=== PATIENT | female | born 1950 | race Caucasian/White ===

== ENCOUNTER 2019-09-06 09:52 | Observation (INO) | payer MEDICARE, SELFPAY ==
[2019-09-06] VITALS (14 sets, daily range): BP systolic 111–168; BP diastolic 45–98; PULSE 82–106; RESP 16–26; TEMP 36.2–37.5; O2SAT 95–100; BMI 27.8
--- NOTE | ~2019-09-06 | CT_ITS ---
EXAMINATION: CTA chest PE protocol DATE: 09/06/2019 13:15 INDICATION: Shortness of breath. Chest pain and midsternal pressure History of COPD and asthma. TECHNIQUE: Computed tomography angiography (CTA) of the chest was performed with 100 mL Omnipaque-350 intravenous contrast timed to evaluate the pulmonary arteries. Coronal maximum intensity projection 3D-reconstructions were created by the technologist. Automated exposure control and iterative reconst ruction technique were employed. Exam dose: 319.33 mGy-cm total exam DLP. COMPARISON: 09/06/2019 PA and lateral chest FINDINGS: There is diagnostic contrast enhancement of the pulmonary arteries and no evidence of pulmo nary embolism. No thoracic aortic aneurysm or dissection. No hilar or mediastinal mass lesion or lymphadenopathy. Normal heart size. No pericardial or pleural effusion. No pulmonary infiltrate or consolidation or suspicious pulmonary mass lesion is detected. Status post cholecystectomy. 1.4 cm left adrenal mass, statistically most likely an adrenal adenoma i f there is no known primary malignancy. No suspicious osteolytic or osteoblastic lesions. Degenerative changes of the thoracic spine. IMPRESSION: No evidence of pulmonary embolism Reviewed, dictated and finalized at [facility]. Reviewed, dictated and finalized at location A. Y REPAIRER
--- NOTE | ~2019-09-06 | XR_ITS ---
XR chest 2V DATE: 09/06/2019 10:14 INDICATION: Shortness of breath. COPD, history of asthma. TECHNIQUE: PA and lateral chest COMPARISON: None FINDINGS: The lungs are hyperinflated but clear of infiltrate or consolidation. No pleural effusion o r pulmonary vascular congestion or pneumothorax. Normal heart size. No hilar or mediastinal enlargement. Aortic arch calcification. Mild degenerative spurring of the thoracic spine. IMPRESSION: No active cardiopulmonary disease Reviewed, dictated and finalized at location A. EDGER
--- NOTE | ~2019-09-06 | NM_ITS ---
EXAMINATION: NM charo stress w perfusion EXAM DATE: 09/08/2019 18:04 INDICATION: Ischemic chest pain. TECHNIQUE: Rest images were obtained following intravenous administration of 9.6 mCi Tc99m tetrofosmi n (Myoview). The patient was infused intravenously with Lexiscan (regadenoson). Then, 25.7 mCi Tc99m tetrofosmin (Myoview) was administered intravenously, and stress images were obtained. Data was recon structed into short axis and horizontal and vertical long axis SPECT images. Gated SPECT images were also obtained. There is no prior study for comparison. FINDINGS: There is no reversible or fixed perfusion abnormality to suggest ischemia or infarction. Th ere is normal left ventricular wall motion. End diastolic volume: 61 mL. End-systolic volume: 7 mL. Left ventricular ejection fraction: 89%. IMPRESSION: 1. Normal myocardial perfusion at rest and during stress. 2. Left ventricular ejection fraction measuring 89%. Reviewed, dictated and finalized at location A. ARCH ASST
--- NOTE | 2019-09-06 10:00 | ECG_ITS ---
Measurements Intervals [place] Rate: 81 P: -73 VA: 187 QRS: 49 QRSD: 77 T: 42 QT: 338 QTc: 394 Interpretive Statements SINUS RHYTHM BORDERLINE ST ABNORMALITY- INFERIOR LEADS BASELINE WANDER- V3 BORDERLINE ECG Electronically Signed On 09-06-2019 11:50:05 REPAIRER SHOE STICKS by Arjun Wagner D.O.
[2019-09-06] MEDS: IPRATROPIUM BR 0.02% INH SOLN 0.5 MG/2.5 ML VIAL INHALATION (10:24)
[2019-09-06] MEDS: ALBUTEROL SULFATE NEB 2.5 MG/0.5 ML INH 5 MG INHALATION (10:24)
[2019-09-06 10:29] LABS: INR 0.9; Prothrombin Time 11.9 Seconds (11.1-14.7)
[2019-09-06 10:30] LABS: Partial Thromboplastin Time 25.8 SECONDS (22.3-36.8)
[2019-09-06 10:37] LABS: Alanine Aminotransferase 16 U/L (4-35); Albumin Level 4.4 g/dL (3.5-5.1); Alkaline Phosphatase 95 U/L (38-126); Aspartate Amino Transferase 18 U/L (14-36); Bilirubin,Total 0.4 mg/dL (0.2-1.3); Blood Urea Nitrogen 16 mg/dL (7-17); Calcium 9.8 mg/dL (8.4-10.2); Carbon Dioxide 22 mmol/L (22-30); Chloride 100 mmol/L (98-107); Estimated Glomerular Filt Rate 55; Glucose 194 mg/dL (65-105); Lipase 94 U/L (23-300); Sodium 137 mmol/L (137-145)
[2019-09-06 10:49] LABS: NT Pro B Type Natriuretic Pept 72 PG/ML (5-100); Troponin I < 0.012 ng/mL (0.000-0.034)
[2019-09-06 10:50] LABS: Troponin I < 0.012 ng/mL (0.000-0.034)
[2019-09-06] MEDS: SODIUM CHLORIDE 0.9% IV 500 ML 999 ML IV CONT (10:58)
[2019-09-06 11:31] LABS: Add Urine Microscopic? NO; Appearance Urine Clear (Clear); Bilirubin Urine Negative (Negative); Blood Urine Negative (Negative); Color Urine Yellow (Yellow); Glucose Urine UA Negative (Negative); Ketones Urine Negative (Negative); Leukocyte Esterase Ur Negative LEU/UL (Negative); Nitrate Urine Negative (Negative); Protein Urine Negative (Negative); Specific Grav Ur 1.011 (1.001-1.035); Urobilinogen Urine Negative mg/dL (<2.0)
[2019-09-06 12:23] LABS: D Dimer 0.61 ug/mL (<0.48)
--- NOTE | 2019-09-06 12:37 | ECG_ITS ---
Measurements Intervals [place] Rate: 87 P: 53 CA: 198 QRS: 20 QRSD: 74 T: 29 QT: 334 QTc: 403 Interpretive Statements SINUS RHYTHM NORMAL ECG Electronically Signed On 09-06-2019 15:51:20 ELECTRIC MOTORMAN by Arjun Wagner D.O.
[2019-09-06 13:23] LABS: Troponin I < 0.012 ng/mL (0.000-0.034)
--- NOTE | 2019-09-06 14:21 | ECG_ITS ---
Measurements Intervals [place] Rate: 84 P: 91 NE: 206 QRS: 23 QRSD: 81 T: 37 QT: 340 QTc: 402 Interpretive Statements SINUS RHYTHM WITH FIRST DEGREE AV BLOCK DELAYED PRECORDIAL R/S TRANSITION ABNORMAL ECG Electronically Signed On 09-06-2019 15:52:48 DIRECTOR OF INTERCOLLEGIATE ATHLETICS by Arjun Wagner D.O.
--- NOTE | 2019-09-06 14:26 | ED.CHESTPAIN ---
HPI - Chest Pain General Chief Complaint: Chest Pain <Bebo Diaz PA-C - Last Filed: 09/06/19 15:19> Stated Complaint: chest pain <GISSELLE Doe Last Filed: 09/06/19 15:19> Source: patient <Bebo GISSELLE Wallis Last Filed: 09/06/19 15:19> Mode of arrival: ambulatory <GISSELLE Doe Last Filed: 09/06/19 15:19> Limitations: no limitations <GISSELLE Doe Last Filed: 09/06/19 15:19> History of Present Illness HPI narrative: Patient is a 68-year-old female who presents to emergency department for evaluation of developing chest heaviness this morning patient notes heaviness that was present upon waking patient notes that she has been ill over the last couple of weeks with bronchitic cough with congestion and rhinorrhea patient has tried [id number] medications as well as her prescribed medications with history of asthma patient on arrival notes that she has some improvement with nitro in route but states that she also feels dizzy patient notes that she had felt better yesterday more so than normal during the course of her upper respiratory symptoms and was more active throughout the day patient on arrival is resting comfortably in the room and denies any dyspnea from her normal shortness of breath but notes that she has had some difficulty with ambulation and activity. Patient is followed by primary care which she is currently between at this time due to insurance issues. 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 Patient denies vomiting diarrhea or abdominal pain. Symptoms are worse with coughing and deep breathing <Bebo Diaz PA-C - Last Filed: 09/06/19 15:19> MD complaint: chest heaviness <GISSELLE Doe Last Filed: 09/06/19 15:19> Pertinent past history: asthma <GISSELLE Doe Last Filed: 09/06/19 15:19> Onset (ago): hour(s) <GISSELLE Doe Last Filed: 09/06/19 15:19> Timing of current episode: constant <GISSELLE Doe Last Filed: 09/06/19 15:19> Prior episodes: No <GISSELLE Doe Last Filed: 09/06/19 15:19> Onset: during rest <Bebo Diaz PA-C - Last Filed: 09/06/19 15:19> Pain location: substernal <GISSELLE Doe Last Filed: 09/06/19 15:19> Severity: moderate <GISSELLE Doe Last Filed: 09/06/19 15:19> Quality: heaviness <GISSELLE Doe Last Filed: 09/06/19 15:19> Relieving factors: nitroglycerin <GISSELLE Doe Last Filed: 09/06/19 15:19> Exacerbating factors: inspiration <GISSELLE Doe Last Filed: 09/06/19 15:19> Context: recent illness <GISSELLE Doe Last Filed: 09/06/19 15:19> Associated symptoms: dyspnea <GISSELLE Doe Last Filed: 09/06/19 15:19> Treatment prior to arrival: aspirin and nitroglycerin <GISSELLE Doe Last Filed: 09/06/19 15:19> Related Data Allergies/Adverse Reactions: Allergies Allergy/AdvReac Type Severity Reaction Status Date / Time No Known Allergies Allergy Verified 09/06/19 10:01 <Bebo Diaz PA-C - Last Filed: 09/06/19 15:19> Review of Systems Review of Systems: Narrative: CONSTITUTIONAL: Denies fever, chills, or sweats. Positive for fatigue EYES: Denies redness, or discharge. ENT: Positive for rhinorrhea, congestion, sore throat, denies otalgia. CARDIOVASCULAR: Denies palpitations, or edema. GASTROINTESTINAL: Denies abdominal pain, nausea, vomiting, or diarrhea. GENITOURINARY: Denies dysuria or hematuria. SKIN: Denies rash or itching. MUSCULOSKELETAL: Denies back pain, joint pain, or myalgia. NEUROLOGIC: Denies headache, numbness, or weakness. PSYCHIATRIC: Positive for anxiety <Bebo Diaz PA-C - Last Filed: 09/06/19 15:19> PMFSH Past Medical History Medical History: Medical History Asthma <Bebo Andrade
--- NOTE | 2019-09-06 14:37 | PC.NURSE ---
PA at bedside; verbal order to not administer Nitro paste at this time.
[2019-09-06] MEDS: methylPREDNISolone SOD SUCC 125 MG VIAL IV PUSH (15:06)
[2019-09-06 17:34] LABS: Glucose Point of Care 184 (65-105)
--- NOTE | 2019-09-06 17:41 | ADMIMU ---
This patient, Tanya Davies, was admitted to IMU status, and placed in IMU Room 207-01. Patient/family oriented to hospital policies and general routines including ID bracelet, bed and alarms, visiting hours, pain management, procedures, bathroom and other care routines, personal items, smoking policy, room service/diet, and visiting hours. Valuables list has been completed. Information on how to activate the Rapid Response Team has been discussed. Patient/Family are encouraged to report perceived risks to care and to ask questions if they do not understand what they are told or what they should do.
[2019-09-06] MEDS: ACETAMINOPHEN 325 MG TABLET 650 MG PO (20:06)
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
[2019-09-06 21:11] LABS: Glucose Point of Care 445 (65-105)
[2019-09-06] MEDS: INSULIN ASPART (*BKC) 100 UNITS/ML 6 UNITS SUB-Q (21:54)
[2019-09-06 22:04] LABS: Troponin I < 0.012 ng/mL (0.000-0.034)
[2019-09-06] MEDS: FAMOTIDINE 20 MG TABLET PO (22:48)
[2019-09-07] VITALS (16 sets, daily range): BP systolic 108–145; BP diastolic 45–64; PULSE 69–100; RESP 16–20; TEMP 36.4–37; O2SAT 96–100
[2019-09-07 00:11] LABS: Glucose Point of Care 385 (65-105)
[2019-09-07] MEDS: INSULIN ASPART (*BKC) 100 UNITS/ML SUB-Q (03:42)
[2019-09-07 04:20] LABS: Glucose Point of Care 278 (65-105)
[2019-09-07 05:23] LABS: Basophils Percent Auto 0.2 % (0.2-1.2); Hematocrit 32.1 % (37.0-47.0); Hemoglobin 10.3 g/dL (12.0-15.0); Immature Granulocyte Absolute 0.03 K/mm3 (0.00-0.031); Immature Granulocyte Percent A 0.3 % (0-0.5); Lymphocytes Absolute Auto 0.78 K/mm3 (0.9-3.2); Lymphocytes Percent Auto 8.6 % (18.3-44.2); Mean Corpuscular HGB Conc 32.1 g/dl (32-36); Mean Corpuscular Hemoglobin 28.5 pg (26-34); Mean Corpuscular Volume 88.7 fl (80-100); Mean Platelet Volume 11.2 fl (7.4-10.4); Monocytes Absolute Auto 0.8 K/mm3 (0.1-0.6); Monocytes Percent Auto 8.3 % (2.6-8.5); Neutrophils Absolute Auto 7.5 K/mm3 (1.3-6.7); Neutrophils Percent Auto 82.6 % (45.5-73.1); Platelet Count Result 289 k/mm3 (150-375); Red Blood Count 3.62 M/mm3 (4.2-5.4); Red Cell Distribution Width 15.3 % (11.5-14.5); White Blood Count 9.1 K/mm3 (4.5-10.0)
[2019-09-07 05:43] LABS: Blood Urea Nitrogen 25 mg/dL (7-17); Calcium 9.4 mg/dL (8.4-10.2); Carbon Dioxide 23 mmol/L (22-30); Chloride 103 mmol/L (98-107); Estimated CRCL calculation 39 ml/min; Estimated Glomerular Filt Rate 49; Glucose 271 mg/dL (65-105); Potassium 3.9 mmol/L (3.4-5.0); Sodium 138 mmol/L (137-145)
[2019-09-07] MEDS: GLIMEPIRIDE 2 MG TABLET PO ×3 (08:26→17:40)
[2019-09-07] MEDS: FLUTICASONE PROPIONATE 0.05% NA SPR 16 GM BTL (*BKC) 1 SPRAY NASAL ×2 (08:27→19:35)
[2019-09-07 09:12] LABS: Glucose Point of Care 263 (65-105)
[2019-09-07 12:39] LABS: Glucose Point of Care 177 (65-105)
[2019-09-07] MEDS: MONTELUKAST SODIUM 10 MG TABLET PO (13:24)
[2019-09-07] MEDS: LORATADINE 10 MG TABLET PO (13:24)
[2019-09-07 18:09] LABS: Glucose Point of Care 163 (65-105)
--- NOTE | 2019-09-07 18:21 | PM.IMPN ---
Progress Note: A&P Assessment and Plan (1) Chest pain: Code(s): R07.9 - Chest pain, unspecified Status: Acute (2) Upper respiratory infection: Code(s): J06.9 - Acute upper respiratory infection, unspecified Status: Acute (3) Asthma: Code(s): J45.909 - Unspecified asthma, uncomplicated Status: Acute (4) Type 2 diabetes mellitus: Code(s): E11.9 - Type 2 diabetes mellitus without complications Status: Acute (5) Hypertension: Code(s): I10 - Essential (primary) hypertension Status: Acute Additional Plan 09/07/19: CP at home at rest but better with NTG. Lungs clear by EMS. EKG in the field showing poor R wave progression. Here, no wheezing by ER provide; Trop negative x3; EKG reviewed showing no significnat changes; CTA chest negative. Patient now having exertional CP when walking in the halls here. No wheezing to suggest pulmonary component but still possibly having chest tightness related to SOB. Was planning on stress test but will have Cardiology see first. NPO after midnight. Subjective Date/time seen: 09/07/19 18:21 Interval history: 68yo female here for CP. Patient states that she woke up with CP yesterday morning and that it lasted 4 hours wihtout much change until given NTG by EMS. She states she was wheezing in the ER but lung exam normal by ER provider. She was treated with steroids, abx, nebs. SHe feels well today. No further CP unless she walks in the halls then she has this 'heavy pressure' in her chest without radiation. She is also SOB due to her asthma. Exam Narrative: Exam Narrative: 128/56 81 Gen - NARD Chest - CTA bilaterally, nml RR CV - RRR S1/S2 Abd - Soft, NT/ND, Positive BS Ext - No pedal edema Neuro - Alert and oriented. Nonfocal exam. Psych - Nml mood and affect Skin - Warm and dry Objective Data Vital Signs Vital Signs: Vital Signs - 24 hr 09/06/19 19:57 09/06/19 20:00 09/06/19 22:00 Temperature 97.2 F L Pulse Rate 97 99 106 H Respiratory Rate 16 Blood Pressure 131/50 L Pulse Oximetry 96 09/07/19 00:00 09/07/19 02:00 09/07/19 03:30 Temperature 97.8 F Pulse Rate 75 93 72 Respiratory Rate 16 Blood Pressure 115/64 Pulse Oximetry 96 09/07/19 04:00 09/07/19 06:00 09/07/19 08:00 Temperature Pulse Rate 70 82 100 Respiratory Rate Blood Pressure Pulse Oximetry 09/07/19 08:21 09/07/19 10:00 09/07/19 12:00 Temperature 97.9 F 97.5 F L Pulse Rate 85 84 83 Respiratory Rate 20 16 Blood Pressure 108/45 L 117/54 L Pulse Oximetry 98 100 09/07/19 14:00 09/07/19 16:00 Temperature 98.3 F Pulse Rate 84 76 Respiratory Rate 16 Blood Pressure 128/56 L Pulse Oximetry 98 Intake/Output Intake/Output: Intake & Output 09/04/19 09/05/19 09/06/19 09/07/19 23:59 23:59 23:59 23:59 Intake Total 240 1460 Output Total 500 Balance 240 960 Meds/Results Medications: Active Medications Generic Name Dose Route Start Last Admin Trade Name Freq PRN Reason Stop Dose Admin Acetaminophen 650 mg 09/06/19 19:49 09/06/19 20:06 Tylenol Tablet PO 650 mg Q6H PRN Administration Mild Pain (1-3) or Fever Albuterol 1 puff 09/06/19 20:49 Proventil Hfa INHALATION PRN PRN Shortness Of Breath Or Wheezing Dextrose 12.5 gm 09/06/19 21:24 Dextrose 50% Syringe IV PUSH PRN PRN Hypoglycemia Protocol Famotidine 20 mg 09/06/19 21:00 09/06/19 22:48 Pepcid PO 20 mg Q12HR HANK Administration Fluticasone Propionate 1 spray 09/07/19 09:00 09/07/19 08:27 Flonase 0.05% Nasal [place] NASAL 1 spray Q12HR HANK Administration Glimepiride 2 mg 09/07/19 08:00 09/07/19 17:40 Amaryl PO 2 mg TIDWM HANK Administration Glucagon 1 mg 09/06/19 21:24 Glucagon For Inj IM PRN PRN Hypoglycemia Protocol Glucose 15 gm 09/06/19 21:24 Glutose 15 PO PRN PRN Hypoglycemia Protocol
[2019-09-07] MEDS: FAMOTIDINE 20 MG TABLET PO (19:36)
[2019-09-07 20:43] LABS: Glucose Point of Care 185 (65-105)
[2019-09-08] VITALS (10 sets, daily range): BP systolic 116–154; BP diastolic 49–61; PULSE 69–84; RESP 16–20; TEMP 36.3–37.2; O2SAT 97–98
--- NOTE | 2019-09-08 | ECHO_ITS ---
Patient Info Name: Tanya Davies Age: 68 years : 1950 Gender: Female Ht: 62 in Wt: 158 lbs BSA: 1.79 m2 HR: 84 bpm BP: 127 / 61 mmHg Technical Quality: Fair Exam Date: 09/08/2019 1:09 PM Exam Location: [facility] Patient Status: Inpatient Admit Date: 09/06/2019 Staff Ordering Physician: Bobby Kay MD Coke Crane Operator: Maggi Reza RDCS Attending Provider: Madi Morocho MD Referring Physician: Rahul JOSHI; Exam Type: CA echo doppler color flow Study Info Indications R07.9 - Chest pain, unspecified Complete two-dimensional, color flow and Doppler transthoracic echocardiogram is performed. Summary 1. Left ventricular systolic function is normal, estimated at 65-70%. 2. There is no increased left ventricular wall thickness. Left Ventricle Left ventricular chamber dimension is normal. Left ventricular systolic function is normal, estimated at 65-70%. There is no increased left ventricular wall thickness. Left ventricular septal wall motion is normal. The left ventricular diastolic function is normal. Right Ventricle Right ventricular chamber dimension is normal. Right ventricular systolic function is normal. Left Atria Left atrial chamber dimension is normal. Right Atria Right atrial chamber dimension is normal. Aortic Valve The aortic valve is trileaflet. There is no aortic valve sclerosis. There is no aortic valve stenosis. There is no aortic valve regurgitation. Pulmonic Valve The pulmonic valve is normal. There is no pulmonic valve stenosis. There is no pulmonic regurgitation. Mitral Valve The mitral valve has normal leaflets. There is no mitral valve stenosis. There is no mitral valve regurgitation. Tricuspid Valve The tricuspid valve leaflets are normal. There is no significant tricuspid valve stenosis. There is no tricuspid valve regurgitation. No pulmonary hypertension, estimated pulmonary arterial systolic pressure is 28 mmHg. Pericardium/Pleural The pericardium appears normal. There is no pericardial effusion. Aorta The aortic root size at the sinus of Valsalva is normal. The prox ascending aorta size is normal. Left Ventricular Outflow Tract Name Value Normal LVOT 2D LVOT Diameter 2.0 cm LVOT Doppler LVOT Peak Gradient 5 mmHg LVOT Mean Gradient 3 mmHg LVOT VTI 25 cm LVOT VTI/AV VTI Ratio 0.9 LVOT Stroke Volume 84 ml LVOT CO 5.7 l/min LVOT CI 3.2 l/min/m2 Pulmonic Valve Name Value Normal RVOT Doppler RVOT Peak Gradient 1 mmHg PV Doppler PV Peak Gradi
[2019-09-08] MEDS: FLUTICASONE PROPIONATE 0.05% NA SPR 16 GM BTL (*BKC) 1 SPRAY NASAL (07:51)
[2019-09-08] MEDS: MONTELUKAST SODIUM 10 MG TABLET PO (07:52)
[2019-09-08] MEDS: GLIMEPIRIDE 2 MG TABLET PO ×3 (07:52→18:18)
[2019-09-08] MEDS: FAMOTIDINE 20 MG TABLET PO (07:53)
[2019-09-08] MEDS: LORATADINE 10 MG TABLET PO (07:58)
[2019-09-08 08:21] LABS: Glucose Point of Care 138 (65-105)
[2019-09-08] MEDS: hydroCHLOROthiazide 25 MG TABLET PO (09:05)
[2019-09-08] MEDS: LOSARTAN POTASSIUM 100 MG TABLET PO (09:05)
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
[2019-09-08 13:08] LABS: Glucose Point of Care 133 (65-105)
--- NOTE | 2019-09-08 14:30 | EST_ITS ---
Patient Info Name: Tanya Davies Age: 68 years : 1950 Gender: Female Ht: 62 in Wt: 150 lbs BSA: 1.74 m2 Exam Date: 09/08/2019 3:56 PM Exam Location: [facility] Stress Patient Status: Inpatient Admit Date: 09/06/2019 Staff Ordering Physician: Bobby Kay MD Attending Provider: Madi Morocho MD Exercise Technologist: Maggi Reza RDCS Exercise Physician: Narciso Scherer MD Exam Type: CA stress charo w NM Study Info Indications R07.89 - Other chest pain A regadenoson stress test was performed. Summary 1. Please correlate with nuclear medicine images, reported separately. Protocol: Lexiscan Stress ECG Details Stage: REST Duration (min): 1 min : 27 sec HR (bpm): 70 SBP (mmHg): 141 DBP (mmHg): 68 Stage: REST Duration (min): --- HR (bpm): 71 SBP (mmHg): 141 DBP (mmHg): 68 Stage: STAGE 1 Duration (min): 1 min : 0 sec HR (bpm): 95 SBP (mmHg): 154 DBP (mmHg): 60 Stage: RECOVERY Duration (min): 1 min : 0 sec HR (bpm): 96 SBP (mmHg): 200 DBP (mmHg): 53 Stage: RECOVERY Duration (min): 2 min : 0 sec HR (bpm): 94 SBP (mmHg): 200 DBP (mmHg): 53 Stage: RECOVERY Duration (min): 3 min : 0 sec HR (bpm): 93 SBP (mmHg): 185 DBP (mmHg): 54 Stage: RECOVERY Duration (min): 4 min : 0 sec HR (bpm): 85 SBP (mmHg): 185 DBP (mmHg): 54 Stage: RECOVERY Duration (min): 5 min : 0 sec HR (bpm): 87 SBP (mmHg): 164 DBP (mmHg): 49 Stage: RECOVERY Duration (min): 5 min : 3 sec HR (bpm): 85 SBP (mmHg): 164 DBP (mmHg): 49 Rest HR: 71 bpm Peak HR: 98 bpm Rest Sys BP: 141 mmHg Peak Sys BP: 200 mmHg Max Pred HR: 150 bpm % Max Pred HR: 65 % Target HR: 128 bpm Max RPP: 19,600 bpm*mmHg Total Time: 1 min : 0 sec Rest Olsen BP: 68 mmHg Peak Olsen BP: 53 mmHg Total Dose: 0.4 mg Resting ECG Normal sinus rhythm - normal ECG. Stress ECG No abnormal ST/T wave changes with exercise. Arrhythmias None. Report Signatures
[2019-09-08 18:11] LABS: Glucose Point of Care 158 (65-105)
--- NOTE | 2019-09-08 19:01 | PM.DS ---
DS: Diagnosis Admitting Diagnosis Admitting Diagnosis: Chest pain, unspecified Discharge Diagnosis (1) Chest pain: Code(s): R07.9 - Chest pain, unspecified Status: Acute (2) Upper respiratory infection: Code(s): J06.9 - Acute upper respiratory infection, unspecified Status: Acute (3) Asthma: Code(s): J45.909 - Unspecified asthma, uncomplicated Status: Acute (4) Type 2 diabetes mellitus: Code(s): E11.9 - Type 2 diabetes mellitus without complications Status: Acute (5) Hypertension: Code(s): I10 - Essential (primary) hypertension Status: Acute DS: Summary Hospital Course Reason for hospitalization: 68yo female here for CP. Please see H&P for details. Hospital Course: Patient had chest pain at home at rest but better with NTG by EMS. Lungs were clear by EMS. EKG in the field showing poor R wave progression. Here, no wheezing by ER provide; Trop negative x3; EKG reviewed showing no significnat changes; CTA chest negative. Patient now having exertional CP when walking in the halls here. No wheezing to suggest pulmonary component. Mildly anemia with Hgb 10.3. CMP normal except for glucose of 194. Patient underwent Lexiscan stress test which showed normal EKG at rest with no ST/T wave changes with exercise. Nuclear images showed normal myocardial perfusion at rest and during stress. LV EF 80%. Echocardiogram essentially normal. Patient feels well today. No further exertional chest pain. She is requesting discharge. Time Spent with Patient Time attestation: Total time spent providing and/or coordinating discharge services:32 minutes Time spent: Greater than 30 minutes Exam Narrative: Exam Narrative: 154/57 78 Gen - NARD sitting at the side of the bed Chest - CTA bilaterally, nml RR CV - RRR S1/S2 Abd - Soft, NT/ND, Positive BS Ext - No pedal edema Psych - Nml mood and affect. In good spirits Skin - Warm and dry DS: Data Data Completed and Pending Labs on day of discharge: Labs from last 24 hours 09/08/19 09/08/19 09/08/19 18:06 12:21 08:14 POC Capillary Glucose 158 H 133 H 138 H 09/07/19 20:32 POC Capillary Glucose 185 H Discharge Plan Discharge Attending physician on discharge: Madi Morocho Consulting providers: Narciso Scherer ; Bebo Diaz Discharging Clinician: Madi Morocho Anticipated Discharge Date/Time: 09/08/19 19:08 Patient Disposition: Home, Self-Care Activity: as tolerated Diet: heart healthy and diabetic Discharge Instructions: Follow up with [facility] with Dr. Scherer at [phone] in 1 week Patient Instructions: Chest Pain (DC), Asthma (DC), COPD (Chronic Obstructive Pulmonary Disease) (DC), Antibiotic Form Stand Alone Forms: General Discharge Information Follow-up/Referrals: Narciso Scherer MD [Physician] - 1 Week Ambreen,Serjio Stark MD [Primary Care Provider] - Discharge Medications: Continued metformin 500 mg tablet 2 mg PO BID RF: 0 albuterol sulfate [Ventolin HFA] 90 mcg/actuation HFA aerosol inhaler 1 inh inhalation PRN PRN (Reason: Shortness Of Breath Or Wheezing) RF: 0 cetirizine [Zyrtec] 10 mg Tablet 10 mg PO DAILY RF: 0 glimepiride 2 mg tablet 2 mg PO TID RF: 0 losartan-hydrochlorothiazide 100-25 mg tablet 1 tablet PO DAILY RF: 0 montelukast 10 mg tablet 10 mg PO DAILY RF: 0 Date of admission: 09/06/19 15:20 Primary Care Provider: Jose LuisSerjio Admitting Provider: Madi Morocho Attending physician on admission: Madi Morocho Condition: Stable Quality VTE Prophylaxis VTE prophylaxis: mechanical ordered
--- NOTE | 2019-09-08 19:01 | PM.PNCARD ---
Subjective Date/time seen: 09/08/19 19:01 stress test was done today, showed no evidence of chest pain no EKG changes, nuclear scan report was negative, she is okay to be discharged home follow-up in our office in 1 week Objective Data Vital Signs Vital Signs: Vital Signs - 24 hr 09/07/19 19:59 09/07/19 20:00 09/07/19 22:00 Temperature 37.0 C Pulse Rate 81 86 70 Respiratory Rate 18 Blood Pressure 145/58 H Pulse Oximetry 97 09/07/19 23:39 09/08/19 00:00 09/08/19 02:00 Temperature Pulse Rate 69 69 75 Respiratory Rate Blood Pressure Pulse Oximetry 09/08/19 04:00 09/08/19 06:00 09/08/19 08:00 Temperature 37.2 C 36.3 C L Pulse Rate 69 73 78 Respiratory Rate 16 16 Blood Pressure 126/55 L 127/61 Pulse Oximetry 98 97 09/08/19 10:00 09/08/19 12:00 09/08/19 14:00 Temperature 36.9 C Pulse Rate 84 74 69 Respiratory Rate 18 Blood Pressure 116/49 L Pulse Oximetry 97 09/08/19 16:00 09/08/19 18:00 Temperature 36.6 C Pulse Rate 77 78 Respiratory Rate 20 Blood Pressure 154/57 H Pulse Oximetry 98 Intake/Output Intake/Output: Intake & Output 09/05/19 09/06/19 09/07/19 09/08/19 23:59 23:59 23:59 23:59 Intake Total 240 1960 Output Total 750 1500 Balance 240 1210 -1500 Meds/Results Medications: Active Medications Generic Name Dose Route Start Last Admin Trade Name Freq PRN Reason Stop Dose Admin Acetaminophen 650 mg 09/06/19 19:49 09/06/19 20:06 Tylenol Tablet PO 650 mg Q6H PRN Administration Mild Pain (1-3) or Fever Albuterol 1 puff 09/06/19 20:49 Proventil Hfa INHALATION PRN PRN Shortness Of Breath Or Wheezing Dextrose 12.5 gm 09/06/19 21:24 Dextrose 50% Syringe IV PUSH PRN PRN Hypoglycemia Protocol Famotidine 20 mg 09/06/19 21:00 09/08/19 07:53 Pepcid PO 20 mg Q12HR HANK Administration Fluticasone Propionate 1 spray 09/07/19 09:00 09/08/19 07:51 Flonase 0.05% Nasal [place] NASAL 1 spray Q12HR HANK Administration Glimepiride 2 mg 09/07/19 08:00 09/08/19 18:18 Amaryl PO 2 mg TIDWM HANK Administration Glucagon 1 mg 09/06/19 21:24 Glucagon For Inj IM PRN PRN Hypoglycemia Protocol Glucose 15 gm 09/06/19 21:24 Glutose 15 PO PRN PRN Hypoglycemia Protocol Hydrochlorothiazide 25 mg 09/08/19 09:00 09/08/19 09:05 Hydrochlorothiazide PO 25 mg DAILY HANK Administration Dextrose 1,000 mls @ 100 mls/hr 09/06/19 21:24 Dextrose 5% 1,000 Ml IVPB PRN PRN Hypoglycemia Protocol Insulin Aspart 4 - 8 units 09/07/19 08:00 09/08/19 18:13 Novolog SUB-Q Not Given TIDWM HANK Protocol Loratadine 10 mg 09/07/19 09:00 09/08/19 07:58 Claritin PO 10/07/19 09:01 10 mg DAILY HANK Administration Losartan Potassium 100 mg 09/08/19 09:00 09/08/19 09:05 Cozaar PO 100 mg DAILY HANK Administration Montelukast Sodium 10 mg 09/07/19 09:00 09/08/19 07:52 Singulair PO 10 mg DAILY HANK Administration Ondansetron HCl 4 mg 09/06/19 15:20 Zofran Inj IV PUSH Q4H PRN Nausea Radiology Results: ITS Impressions Chest X-Ray 09/06/19 10:27 IMPRESSION: No active cardiopulmonary disease Chest CTA 09/06/19 14:19 IMPRESSION: No evidence of pulmonary embolism Lexiscan Stress Test 09/08/19 18:11 IMPRESSION: 1. Normal myocardial perfusion at rest and during stress. 2. Left ventricular ejection fraction measuring 89%. Labs Labs: Laboratory Results - last 24 hr 09/07/19 09/08/19 09/08/19 20:32 08:14 12:21 POC Capillary Glucose 185 H 138 H 133 H 09/08/19 18:06 POC Capillary Glucose 158 H Quality VTE Prophylaxis VTE prophylaxis: mechanical ordered
--- NOTE | 2019-09-08 20:19 | PC.NURSE ---
Patient noted to be gone from room. Belongings are not present. Patient had been given discharge paperwork and education and was awaiting her ride to leave. Patient last seen per staff to be ambulating off unit.
== END 2019-09-08 20:19 | disposition home or self-care (01) ==
LOC: ANHED 15:31 → ANHIMU 15:55
PROVIDERS: Emergency Medicine Emergency Medical Services; Physician Assistant; Admitting Provider Internal Medicine; Emergency Provider Emergency Medicine; PCP Internal Medicine; Visit Provider Internal Medicine
DX: R07.9 Chest pain, unspecified (principal); J06.9 Acute upper respiratory infection, unspecified; J45.909 Unspecified asthma, uncomplicated; E11.9 Type 2 diabetes mellitus without complications; I10 Essential (primary) hypertension; D64.9 Anemia, unspecified; R06.02 Shortness of breath; G47.33 Obstructive sleep apnea (adult) (pediatric); Z99.89 Dependence on other enabling machines and devices; Z79.51 Long term (current) use of inhaled steroids; Z79.84 Long term (current) use of oral hypoglycemic drugs; Z79.899 Other long term (current) drug therapy; Z87.891 Personal history of nicotine dependence
CPT/HCPCS: 36415; 71046; 71275; 78452; 80048; 80053; 81003; 83690; 83880; 84484; 85025; 85380; 85610; 85730; 87804; 93005; 93017; 93306; 94640; 96374; 99285; A9270; A9502; G0378; J1815; J2785; J2930; J7040; Q9967

== ENCOUNTER 2021-09-12 14:33 | Outpatient (CLI) | payer MEDICARE, SELFPAY ==
--- NOTE | ~2021-09-12 | US_ITS ---
EXAMINATION: US venous doppler LE RT DATE: 09/12/2021 15:24 INDICATION: Right lower limb swelling TECHNIQUE: Grayscale ultrasound images without and with compression and Doppler ultrasound images of the right lower extremity veins were obtained. COMPARISON: None. FINDINGS: The visualized portions of right common femoral vein, profunda (deep) femoral vein, femoral vein, pop liteal vein, posterior tibial veins, peroneal veins, gastrocnemius vein and greater saphenous vein ou tflow are patent. IMPRESSION: 1. No deep venous thrombosis in the right lower limb. Reviewed, dictated and finalized at location B. INE MOVER
[2021-09-12 16:19] LABS: Vitamin D 25 Hydroxy 37.6 ng/mL
== END 2021-09-12 14:34 | disposition home or self-care (01) ==
PROVIDERS: PCP Internal Medicine; Visit Provider Orthopaedic Surgery
DX: M79.89 Other specified soft tissue disorders (principal); E55.9 Vitamin D deficiency, unspecified
CPT/HCPCS: 36415; 82306; 93971

== ENCOUNTER 2023-03-01 14:41 | Outpatient (CLI) | payer MEDICARE, SELFPAY ==
--- NOTE | ~2023-03-01 | DEXA_ITS ---
Bone Density Report Name: DEB PARSONS Age: 72 Sex: Female Ethnicity: White Date of : 1950 Indication: postmenopausal; screening for osteoporosis; asthma or emphysema; Referring Provider: GAYLA, EVELIO Stark Study: Bone densitometry was performed. Exam Date: March 01, 2023 Accession number: [id number] Bone Density: Region BMD T-score Z-score Classification AP Spine(L1-L4) 1.075 0.3 2.6 Normal Femoral Neck (Left) 0.652 -1.8 0.3 Osteopenia Total Hip (Left) 0.909 -0.3 1.5 Normal Femoral Neck (Right) 0.697 -1.4 0.7 Osteopenia Total Hip (Right) 0.863 -0.6 1.1 Normal Total Hip Mean 0.886 -0.5 1.3 Normal World Health Organization criteria for BMD impression classify patients as: Normal (T-score at or above -1.0), Osteopenia (T-score between -1.0 and -2.5), or Osteoporosis (T-score at or below -2.5). 10-year Fracture Risk(1): Major Osteoporotic Fracture 12% Hip Fracture 2.5% Reported Risk Factors: [place] (), Neck BMD=0.652, BMI=26.2 (1) FRAX(R) Version 3.08. Fracture probability calculated for an untreated patient. Fracture probability may be lower if the patient has received treatment. Clinical Information Provided by Patient: Has used the following medications: Vitamin D Has the following medical conditions: Asthma or Emphysema Patient maximum height was 62 Menopause Age: 56 Onset of menses at age 13 Number of children 2 Impression: The patient has low bone mass, based on the Left Femoral Neck T-score. The patient has an estimated ten-year risk of hip fracture of 2.5% and an estimated ten-year risk of major fracture of 12%, based on the WHO FRAX algorithm. Discussion: BONE DENSITY IS LOW AT ONE OR MORE SKELETAL SITES. This patient's lowest T-score is low at one or more skeletal sites. It meets the World Health Organization's (WHO) criteria for ?low bone mass? (T-score between -1.0 and -2.5). The patient's 10-year risk of fracture as calculated by FRAX is less than the threshold where pharmacological therapy is recommended by the National Osteoporosis Foundation (NOF). However, all treatment decisions require clinical judgment and consideration of individual patient factors, including patient preferences, comorbidities, previous drug use, risk factors not captured in the FRAX model (e.g., frailty, falls, vitamin D deficiency, increased bone turnover, interval significant decline in bone density) and possible under or overestimation of fracture risk by FRAX. The patient should follow a healthful lifestyle (good nutrition with adequate calcium and vitamin D, and appropriate weight-bearing exercise). Follow-Up: Consider repeating this study in 2 to 3 years to reassess this patient's status, or sooner if there is some new clinical indication. Reported by:
--- NOTE | ~2023-03-01 | MM_ITS ---
EXAMINATION: MM screening [facility] BI w [facility] HISTORY: Screening mammogram TECHNIQUE: Craniocaudal and mediolateral oblique 3-D tomosynthesis images were obtained and synthetic 2-D images were generated. CAD analysis was submitted and interpreted. COMPARISON: No prior mammogram is available for comparison at this institution. BREAST PARENCHYMAL COMPOSITION: There are scattered areas of fibroglandular density. FINDINGS: Occasional benign calcifications. There is no evidence of suspicious mass, calcification, o r architectural distortion to suggest malignancy in either breast. There has been no suspicious inter andres change. IMPRESSION: 1. No mammographic evidence of malignancy. 2. Recommend routine screening mammography in one year. BI-RADS Category 2: Benign finding(s). Reviewed, dictated and finalized at location A.
== END 2023-03-01 14:42 | disposition home or self-care (01) ==
LOC: ANHIMG 14:42
PROVIDERS: PCP Internal Medicine; Visit Provider Internal Medicine
DX: Z12.31 Encounter for screening mammogram for malignant neoplasm of breast (principal); Z78.0 Asymptomatic menopausal state; M85.852 Other specified disorders of bone density and structure, left thigh; M85.851 Other specified disorders of bone density and structure, right thigh
CPT/HCPCS: 77063; 77067; 77080

== ENCOUNTER → 2023-04-20 10:50 | Outpatient (CLI) | payer MEDICARE, SELFPAY | PROVIDERS: PCP Internal Medicine; Visit Provider Internal Medicine | DX: M25.562 Pain in left knee (principal) | CPT/HCPCS: 73562 ==

== ENCOUNTER 2024-01-24 14:35 | Outpatient (CLI) | payer MEDICARE, SELFPAY ==
--- NOTE | ~2024-01-24 | US_ITS ---
EXAMINATION: US renal BI DATE: 01/24/2024 15:18 INDICATION: Chronic kidney disease stage III TECHNIQUE: Multiple ultrasound grayscale images of the kidneys were obtained. COMPARISON: Chest CT 09/06/2019 FINDINGS: The right kidney measures 11.4 x 5.1 x 5.8 cm. The left kidney measures 9.1 x 5.0 x 4.3 cm. The kidne ys demonstrate normal parenchymal echogenicity. There is no hydronephrosis. The bladder is normal. IMPRESSION: 1. Normal kidneys. No hydronephrosis. Reviewed, dictated and finalized at location E.
== END 2024-01-24 14:36 | disposition home or self-care (01) ==
PROVIDERS: PCP Internal Medicine; Visit Provider Internal Medicine Nephrology
DX: N18.30 Chronic kidney disease, stage 3 unspecified (principal)
CPT/HCPCS: 76775

== ENCOUNTER 2024-04-23 14:33 | Outpatient (CLI) | payer MEDICARE, SELFPAY ==
--- NOTE | ~2024-04-23 | MM_ITS ---
EXAMINATION: MM screening rosenda BI w scott HISTORY: Screening TECHNIQUE: Craniocaudal and mediolateral oblique 3-D tomosynthesis images were obtained and synthetic 2-D images were generated. CAD analysis was submitted and interpreted. COMPARISON: No prior mammogram is available for comparison at this institution. BREAST PARENCHYMAL COMPOSITION: Not dense: There are scattered areas of fibroglandular density. FINDINGS: There is no evidence of suspicious mass, calcification, or architectural distortion to sugg est malignancy in either breast. There has been no suspicious interval change. IMPRESSION: 1. No mammographic evidence of malignancy. 2. Recommend routine screening mammography in one year. BI-RADS Category 1: Negative Reviewed, dictated and finalized at location B.
== END 2024-04-23 14:34 | disposition home or self-care (01) ==
LOC: ANHIMG 14:34
PROVIDERS: PCP Internal Medicine; Visit Provider Internal Medicine
DX: Z12.31 Encounter for screening mammogram for malignant neoplasm of breast (principal)
CPT/HCPCS: 77063; 77067

== ENCOUNTER 2025-01-29 10:53 | Outpatient (CLI) | payer MEDICARE, SELFPAY ==
--- NOTE | ~2025-01-29 | XR_ITS ---
Right Hand Technique: PA, oblique, and lateral views were obtained. Clinical History: Pain Findings: No acute fracture or dislocation is seen. Osseous alignment is anatomic. Joint spaces are p reserved. Soft tissues are unremarkable. Impression: Unremarkable right hand. Reviewed, dictated and finalized at location M. Impression: Unremarkable right hand.
== END 2025-01-29 10:54 | disposition home or self-care (01) ==
LOC: MICIMG 10:57
PROVIDERS: PCP Internal Medicine
DX: M79.641 Pain in right hand (principal)
CPT/HCPCS: 73130

== ENCOUNTER 2025-03-24 09:46 | Outpatient (CLI) | payer MEDICARE, SELFPAY ==
--- NOTE | ~2025-03-24 | CT_ITS ---
CT abdomen pelvis wo con Ordering provider: Serjio Crook, History: 74 years Female with . LLQ abd pain GFR 27 . Comparison: None. Technique: CT abdomen and pelvis without IV and without oral contrast. Automated exposure control and iterative reconstruction technique were employed. The dose-length product was 651.47 mGy-cm. Findings: VISUALIZED LOWER CHEST: Normal. UPPER ABDOMINAL ORGANS: Liver: Normal. Gallbladder: Status post cholecystectomy. Spleen: Normal. Stomach/duodenum: Normal. Pancreas: Normal. Adrenals: Left adrenal adenoma measuring 1.5 cm. No follow-up advised unless clinically warranted. Kidneys: Fullness of the pelvic calyceal system seen bilaterally with possible parapelvic cysts. No u reteric dilatation seen bilaterally. PELVIC ORGANS: The bladder is normal. BOWEL AND MESENTERY: Colon: No evidence of diverticulitis. No evidence of appendicitis. Small Bowel: Normal. No obstruction. Peritoneum/mesentery: No free air or free fluid. No mesenteric lymphadenopathy. Fat stranding seen in the left lower quadrant anteriorly adjacent to the small bowel which is highly suggestive of appenda gitis Follow-up advised. RETROPERITONEUM: Mild atheromatous disease of the abdominal aorta. No retroperitoneal lymphadenopat hy. MUSCULOSKELETAL: Superficial soft tissues: The superficial soft tissues are normal. Bones: Age appropriate degenerative changes of the spine. Bilateral sacroiliitis. Pubic symphysitis. IMPRESSION: 1. Fat stranding with inflammatory changes seen in the left lower quadrant mesentery near to the sma ll and large bowel suggestive of an appendagitis. Clinical correlation and follow-up advised. 2. Bilateral pelvic calyceal system fullness suggestive of mild hydronephrotic changes but parapelvi c cysts are also possible. Follow-up advised. 3. Small left adrenal adenoma. No follow-up advised unless clinically warranted. No 4. No evidence of appendicitis, diverticulitis or intestinal obstruction. Reviewed, dictated and finalized at location A. IMPRESSION: 1. Fat stranding with inflammatory changes seen in the left lower quadrant mes entery near to the small and large bowel suggestive of an appendagitis. Clinica l correlation and follow-up advised. 2. Bilateral pelvic calyceal system fullness suggestive of mild hydronephrotic changes but parapelvic cysts are also possible. Follow-up advised. 3. Small left adrenal adenoma. No follow-up advised unless clinically warrante d. No 4. No evidence of appendicitis, diverticulitis or intestinal obstruction.
--- OUTSIDE RECORDS SUMMARY | 2025-03-24 10:01 | XMS_ITS | Clinical Summary ---
Author Organization [facility] Facility Address [address] [place] [address] Care Team Providers Care Geology Teacher Name Role Phone Ambreen Bassett MD Primary Care Provider [phone] Medications ergocalciferol 1.25 MG (93858 UT) capsule TAKE 1 CAPSULE BY MOUTH ONCE WEEKLY 15 capsule 2 5 Active indapamide (LOZOL) 1.25 MG tablet Take 1 tablet (1.25 mg total) by mouth every morning 100 tablet 5 Active indapamide (LOZOL) 1.25 MG tablet Take 1 tablet (1.25 mg total) by mouth 1 (one) time each day in the morning 90 tablet 1 5 02/24/20 25 Discontinued Encounters Date Type Department Care Team Description 02/23/2025 Refill [facility] [address] [facility] [address] [place] [address] Hoang Neal, from Last 3 Months Social History Tobacco Use Types Packs/Day Years Used Date Smoking Tobacco: Never Assessed Comments Unknown Sex and Gender Information Value Date Recorded Sex Assigned at Not on file Legal Sex Female 4:09 PM EST Gender Identity Not on file Sexual Orientation Not on file Last Filed Vital Signs Vital Sign Reading Time Taken Comments Blood Pressure 140/60 12/16/2024 1:15 PM CDT Pulse 68 12/16/2024 1:15 PM CDT Temperature 36.7 C (98 F) 12/16/2024 1:15 PM CDT Respiratory Rate 18 12/16/2024 1:15 PM CDT Oxygen Saturation 97% 12/16/2024 1:15 PM CDT Inhaled Oxygen Concentration - - Weight 71 kg (156 lb 8 oz) 12/16/2024 1:15 PM CD T Height - - Body Mass Index - - Plan of Treatment Upcoming Encounters Date Type Department Care Team (Late st Contact Info) Description 06/23/2025 1:00 PM CDT Office Visit [facility] [address] [facility] [address] [place] [id number] Hoang Neal DO [address] [place] [address] Health Maintenance Due Date Last Done Comments Pneumococcal Vaccine: 50+ Ye ars (1 of 2 - PCV) 1969 Diabetes: Hemoglobin A1C 01/15/2024 Diabetes: Ophthalmology Exam 01/15/2024 Diabetes: Pedal Pulse Checked 01/15/2024 Diabetes: Sensory Foot Exam 01/15/2024 Diabetes: Visual Foot Exam 01/15/2024 Influenza Vaccine (#1) 2025 Hepatitis B Vaccine Aged Out No longe r eligible based on patient's age to complete this topic Insurance [facility] Medicare Advance Directives Documents on File Type Date Recorded 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
--- OUTSIDE RECORDS SUMMARY | 2025-03-24 10:01 | XMS_ITS | Continuity of Care Document ---
Author Organization [place] - [facility], [facility] Address [address] [place] [address] Care Team Providers Care Cost Analyst Name Role Phone EVELIO SHUKLA Primary Care Provider EVELIO SHUKLA Referring Provider Assessment No assessment recorded. Plan of Treatment Reminders Order Date Submit Date Provider Last Modified By Organization Details Last Modified Time Details Appointments Any 2024 08:30A Kimmy Shukla MD Not available Not available Not available Follow Up 2024 02:00P Kimmy Barajas MD Not available Not available Not available Any 2024 08:15A Kimmy Shukla MD Not available Not available Not available Lab CBC 2024 025 [email or web address] [facility], [address], [place], [address], 03/24/2025 09:58:29 amylase, serum or plasma 2024 025 [email or web address] [facility], [address], [place], [address], 03/24/2025 09:58:30 lipase, serum or plasma 2024 025 [email or web address] [facility], [address], [place], [address], 03/24/2025 09:58:32 CMP, serum or plasma 2024 025 [email or web address] [facility], [address], [place], [address], 03/24/2025 09:58:32 urinalysi s, complete 2024 025 [email or web address], [address], [place], [address], 03/24/2025 09:58:33 Referral None recorded. Procedures None recorded. Surgeries None recorded. Imaging CT, abdomen + pelvis, w/wo contrast - STAT hold and call, 2024 025 [facility], [address], [place], [address], 03/24/2025 10:58:56 Medication Orders Cipro 500 mg tablet 2024 025 [facility] [address], [address] [place] [address], [id number], 03/24/2025 09:50:14 metronida zole 500 mg tablet 2024 025 [facility] [address]61, [address] [place] [address], [id number], 03/24/2025 09:50:14 Patient TargetsNo targets recorded. Patient InstructionsNo instructions recorded. Reason for Referral None Reported. Problems Name Problem SNOMED Code Status Onset Date Resolution Date Notes Provider Name and Address Organization Details Recorded Time Acute bronchiti s 05304258 Completed Not Available [facility] 3 02:51:41 Menopausa l flushing 266074921 Completed Not Available [facility] 3 02:51:41 Eruption 576375670 Completed 202108/11/2022 Not Available [facility] 3 02:51:41 Hypertrig lyceridem ia 936371707 Active 2021 Not Available [facility] 3 02:51:41 Osteopeni a 564186811 Completed Not Available [facility] 3 02:51:41 Closed fracture of lateral malleolus 15022972 Completed 202104/05/2022 Not Available [facility] 3 02:51:41 Osteoarth ritis 167956915 Active Not Available [facility] 3 02:51:41 Closed fracture of lower leg 742389484 Completed Not Available [facility] 3 02:51:41 Essential hypertens ion 92706775 Active Not Available [facility] 3 02:51:42 Allergic rhinitis 19108407 Active 2018 Not Available [facility] 3 02:51:42 Polyp of colon 52475681 Active 2020 Not Available [facility] 3 02:51:42 Diabetes mellitus 93357378 Active Tiara Estevez MA null, [place] [facility] 5 13:54:18 Ex-smoker 4683707 Active 2020 Not Available [facility] 3 02:51:42 Disorder of skin 98812324 Completed Not Available [facility] 3 02:51:42 Low back pain 357927149 Completed 202212/24/2023 Claudia leroy RMA null, [place] [facility] 4 09:29:31 Tinnitus of left ear 34637974910 06 Active 2022 DIANNE Madison null, [place] [facility] 5 09:33:29 Obstructi ve sleep apnea syndrome 55816973 Active 2022 Alberto Barajas MD [address], [address] , [place] [facility] 5 15:13:33 Kidney disease 25194904 Active 2022 Claudia leroy RMErika christie, [place] [facility] 4 09:29:09 COVID-19 181733060 Completed 202303/24/2025 DIANNE Madison, [place] [facility] 5 09:32:56 Periodic limb movement disorder 042047809 Active 2023 Claudia leroy RMA null, [place] [facility] 5 09:33:20 Iron deficienc y 47463460 Active 2023 Claudia Braga n, RMA null, [facility] 5 09:33:00 Vitamin B12 deficienc y (non anemic) 09277141 Active 2023 Claudia leroy, RMA null, [facility] 5 09:33:35 Asthma 396275337 Active 2023 Claudia leroy RMA null, [place] [facility] 09:32:51 Cobalamin deficienc y 869934537 Active 2023 Claudia leroy RMA null, [facility] 5 09:32:53 Urinary tract infectiou s disease 43830897 Completed 202403/24/2025 Claudia leroy, RMA null, [facility] 5 09:33:33 Hyperlipi demia 09351728 Active 2024 Claudia leroy, RMA null, [facility] 5 09:33:02 Sleep apnea 74355986 Active 2024 Claudia Buia n, RMA null, [facility] 5 09:33:16 Pain of left knee joint 58335226905 4107 Completed 202403/24/2025 Claudia Buia n, RMA null, [place] [facility] 5 09:33:24 Pain in finger of right hand 62436311411 9109 Completed 202403/24/2025 Claudia Braga n, RMA null, [facility] 5 09:33:06 Pain in right hand 34702486129 9109 Completed 202403/24/2025 Claudia leroy, DIANNE null, [facility] 5 09:33:12 Left lower quadrant pain 265771234 Active 2024 Evelio Shukla MD [address] [place] [address], [place] [address], [place], [address] , [facility] 5 09:42:23 Notes:Medical History: Left tinnitus COVID infection 10/2023 Rhinitis Early REM onset Obesity with very severe OSAHS, AHI = 52, 11/07/18, on CPAP c/o IVRC Hypertension Mixed hyperlipidemia T2DM IBS Diverticulosis Hemorrhoids CKD Anemia Iron deficiency B12 deficiency PLMD Bilateral femoral neck osteopenia Right distal fibular metaphysis fracture Right plantar calcaneal bone spur Right Achilles insertion enthesophyte Procedure History: Facial reconstruction surgery 1961 1975 Cholecystectomy 1998 Right CTS release surgery 2008 Left CTS release surgeries 2008 Colonoscopies with tubular adenoma excisions 2021 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 Procedures Surgical History Date Name Laterality Status Provider Name and Address Organization Details Recorded Time 12/24/19 24 Medicare Wellness CPT Code, subsequent completed Ama Nava RN [facility] 12/24/2023 09:38:55 12/24/19 24 Medicare Wellness CPT Code, Initial completed [facility] [place] [facility] 12/24/2023 09:38:24 12/21/19 23 Medicare Wellness CPT Code, subsequent completed GALINA Rodriguez [place] [facility] 12/20/2022 09:49:19 12/24/19 21 Most Recent Bone Density completed Not Available [facility] 11/08/2022 02:45:41 12/24/19 21 Most Recent Mammogram completed Not Available [facility] 11/08/2022 02:45:41 06/19/20 16 Date of Last Colonoscopy completed Not Available [facility] 11/08/2022 02:45:41 12/10/19 13 Date of Last Pap Smear completed Not Available [facility] 11/08/2022 02:45:41 08/25/20 10 colonoscopy completed Not Available [facility] 11/08/2022 02:45:45 Cholecystectomy completed Not Available [facility] 11/08/2022 02:45:45 section completed Not Available [facility] 11/08/2022 02:45:45 other completed Not Available [facility] 11/08/2022 02:45:45 other completed Not Available [facility] 11/08/2022 02:45:45 Breast Biopsy completed Not Available [facility] 11/08/2022 02:45:45 Orthopedic Surgery completed Not Available [facility] 11/08/2022 02:45:45 Imaging Results None recorded. Procedure Notes None recorded. Medical Equipment None Reported. Allergies Allergen ID Allergen Name Allergen Category Reaction Reaction Severity Criticality Documentation Date Start Date Code Code System Note Provider Name and Address Organization Details Recorded Time 4606 Product containin g 3-hydroxy -3-methyl glutaryl- coenzyme A reductase inhibitor (product) medicatio n Not available Not available Not available 11/08/2022 71346 009 SNOMED stoma ch upset Not Available [facility] 02:59:11 4607 diclofena c Not available diarrhea Not available Not available 11/08/2022 3355 RxNorm Chase Schumacher CMA null, [place] [facility] [place] [facility] 4 14:54:51 Medications Name Sig Start Date Stop Date Status Note LastModified by Organization Details LastModified Time losartan 50 mg tablet Take 1 tablet every day by oral route for 30 days. 2013 active Not Available Not Available Not Avai lable amoxicill in 500 mg capsule TAKE 1 CAPSULE BY MOUTH THREE TIMES DAILY FOR 7 DAYS 07/30 completed Not Available Not Available Not Available metformin 500 mg tablet TAKE 2 TABLETS BY MOUTH TWICE DAILY 04/23 completed was affectin g her kidneys, changed to farxiga Not Available Not Available Not Available fluticaso ne 250 mcg-salme terol 50 mcg/dose blistr powdr for inhalatio n Inhale 1 puff twice a day by inhalati on route. 12/23 completed Not Available Not Available Not Available doxycycli ne hyclate 100 mg capsule Take 1 capsule twice a day by oral route for 7 days. active Not Available Not Available No t Available Ciloxan 0.3 % eye ointment APPLY 0.5 INCH RIBBON INTO LOWER CONJUNCT IVAL SAC(S) IN THE AFFECTED EYE(S) BY OPHTHALM IC ROUTE 3 TIMES/DA Y FOR 4 DAYS THEN 2 TIMES/DA Y X 5 02/06 completed Not Available Not Available Not Available Vitamin C 500 mg tablet Take 1 tablet every day by oral route. 2024 active Not Available Not Available Not Avai lable meloxicam 15 mg tablet TAKE 1 TABLET BY MOUTH ONCE DAILY 08/21 completed Not Available Not Available Not Available ondansetr on HCl 4 mg tablet Take 2 tablets 4 times a day by oral route as needed. active Not Available Not Available No t Available glipizide 10 mg tablet medicati on:glipi zide 10 mg tablet d ose:0.0 route:P O freque ncy:BID 12/07 completed Not Available Not Available Not Available metronida zole 500 mg tablet Take 1 tablet every 8 hours by oral route. 2024 active Not Available Not Available Not Avai lable acetamino phen 300 mg-codein e 30 mg tablet active Not Available Not Available Not Available Tamiflu 75 mg capsule Take 1 capsule twice a day by oral route for 5 days. 02/06 completed Not Available Not Available Not Available peg-elect rolyte solution 420 gram oral solution USE DIRECTED 04/11 completed Not Available Not Available Not Available glimepiri de 2 mg tablet TAKE 1 & 1 2 (ONE & ONE HALF) TABLETS BY MOUTH TWICE DAILY 01/12 completed Not Available Not Available Not Available Gentak 0.3 % (3 mg/gram) eye ointment APPLY A SMALL AMOUNT (1/2 INCH) TO THE LOWER LID OF THE AFFECTED EYE(S) BY OPHTHALM IC ROUTE 2 TIMES PER DAY X 5 DAYS 02/06 completed Not Available Not Available Not Available glimepiri de 1 mg tablet TAKE 1 TABLET BY MOUTH TWICE DAILY active Not Available Not Available No t Available losartan 100 mg-hydroc hlorothia zide 25 mg tablet TAKE 1 TABLET BY MOUTH ONCE DAILY 01/12 completed Not Available Not Available Not Available cephalexi n 500 mg capsule TAKE 1 CAPSULE BY MOUTH THREE TIMES DAILY FOR 7 DAYS 05/01 completed Not Available Not Available Not Available simvastat in 20 mg tablet Take 1 tablet every day by oral route for 30 days. active Not Available Not Available No t Available ferrous sulfate 325 mg (65 mg iron) tablet Take 1 tablet every day by oral route. 2024 active Not Available Not Available Not Avai lable metformin 1,000 mg tablet medicati on:metfo rmin 1,000 mg tablet d ose:0.0 route:P O freque ncy:BID 12/07 completed Not Available Not Available Not Available neomycin- polymyxin -dexameth 3.5 mg/mL-10, 000 unit/mL-0 .1% eye drops 10/24 completed Not Available Not Available Not Available Cipro 500 mg tablet Take 1 tablet every 12 hours by oral route. 2024 active Not Available Not Available Not Avai lable glimepiri de 4 mg tablet TAKE 1 TABLET BY MOUTH TWICE DAILY 2023 active JARROD 04/24/24 NOV 10/01/24 ok to rf Not Available Not Available Not Available iron 325 mg tablet Take 1 tablet every day by oral route. 12/25 completed Not Available Not Available Not Available diclofena c sodium 75 mg tablet,de layed release TAKE ONE TABLET BY MOUTH TWICE DAILY active Not Available Not Available No t Available monteluka st 10 mg tablet TAKE 1 TABLET BY MOUTH DAILY 2024 active JARROD 10/01/24 NOV 12/25/24 ok to rf Not Available Not Available Not Available hydrochlo rothiazid e 25 mg tablet TAKE 1 TABLET BY MOUTH ONCE DAILY 07/30 completed JARROD 04/24/24 NOV 08/27/24 ok to rf Not Available Not Available Not Available mupirocin 2 % topical ointment 08/17 completed Not Available Not Available Not Available ergocalci ferol (vitamin D2) 1,250 mcg (50,000 unit) capsule Take 1 capsule every week by oral route for 90 days. active Not Available Not Available No t Available clobetaso l 0.05 % topical ointment APPLY TO ECZEMA TWICE DAILY FOR 2 WEEKS AT A TIME MAXIMUM NEEDED FOR FLARES. (AVOID APPLYING TO GROIN, FACE, AND UNDERARM S) active Not Available Not Available No t Available azelastin e 137 mcg (0.1 %) nasal spray USE 2 SPRAY(S) IN EACH NOSTRIL TWICE DAILY 08/11 completed Not Available Not Available Not Available levofloxa ermelinda 500 mg tablet Take 1 tablet every 24 hours by oral route for 14 days. 01/12 completed Not Available Not Available Not Available methylpre dnisolone 4 mg tablets in a dose pack take as directed active Not Available Not Available No t Available albuterol sulfate HFA 90 mcg/actua tion aerosol inhaler INHALE 2 PUFFS BY MOUTH EVERY 4 HOURS NEEDED active Not Available Not Available No t Available losartan 100 mg tablet TAKE 1 TABLET BY MOUTH DAILY 2024 active JARROD 01/21/25 05/04/25 ok to rf Not Available Not Available Not Available Lipitor 10 mg tablet Take 1 tablet every day by oral route for 30 days. 06/11 completed pt stopped- frequent urinatio n Not Available Not Available Not Available doxycycli ne hyclate 100 mg tablet TAKE 1 TABLET BY MOUTH TWICE DAILY FOR 7 DAYS 01/21 completed Not Available Not Available Not Available amoxicill in 875 mg-potass ium clavulana te 125 mg tablet active Not Available Not Available Not Available Vitamin B-12 1,000 mcg tablet Take 1 tablet every other day by oral route. 2024 active Not Available Not Available Not Avai lable Zetia 10 mg tablet Take 1 tablet every day by oral route. 01/12 completed Not Available Not Available Not Available cyclobenz aprine 5 mg tablet TAKE 1 TABLET BY MOUTH ONCE DAILY AT BEDTIME 08/21 completed Not Available Not Available Not Available nitrofura ntoin monohydra te/macroc rystals 100 mg capsule TAKE 1 CAPSULE BY MOUTH EVERY 12 HOURS FOR 5 DAYS 12/25 completed Not Available Not Available Not Available iron 01/21 completed Not Available Not Available Not Available Golytely 236 gram-22.7 4 gram-6.74 gram-5.86 gram oral solution DIRECTED 08/15 completed Not Available Not Available Not Available Jinteli 1 mg-5 mcg tablet Take 1 tablet every other day by oral route. active Not Available Not Available No t Available Farxiga 10 mg tablet TAKE 1 TABLET BY MOUTH DAILY 2024 active JARROD 01/21/25 05/04/25 ok to rf Not Available Not Available Not Available albuterol sulfate 90 mcg/actua tion breath activated powder inhaler Inhale 2 puffs every 4 hours by inhalati on route. 10/10 completed Not Available Not Available Not Available Accu-Chek Guide test strips use to test blood sugars twice daily 2024 active Not Available Not Available Not Avai lable Fluzone High-Dose 8271-8923 (PF) 180 mcg/0.5 mL intramusc ular syringe 06/07 completed Not Available Not Available Not Available Ozempic 0.25 mg or 0.5 mg (2 mg/1.5 mL) subcutane ous pen injector INJECT 0.25 ML SUBCUTAN EOUSLY EVERY WEEK 10/01 completed getting 4 months patient assistan t program 2on the 0.5 Not Available Not Available Not Available OneTouch Ultra Blue Test Strip USE 1 STRIP TO CHECK GLUCOSE TWICE DAILY NEEDED 12/23 completed Not Available Not Available Not Available OneTouch Ultra2 Meter USE DIRECTED 08/17 completed Not Available Not Available Not Available Fluzone High-Dose 2018- (PF) 180 mcg/0.5 mL intramusc ular syringe PHARMACI ST ADMINIST ERED IMMUNIZA TION ADMINIST ERED AT TIME OF DISPENSI NG active Not Available Not Available No t Available Proair Digihaler 2 puffs BID 232/14 mcg 04/20 completed Not Available Not Available Not Available Fluzone High-Dose Quad 2019- (PF) 240 mcg/0.7 mL IM syringe 08/11 completed Not Available Not Available Not Available AirDuo Digihaler 232 mcg-14 mcg/actua tion breath act,powde r sensor INHALE 2 PUFFS TWICE DAILY 04/20 completed Not Available Not Available Not Available Ozempic 1 mg/dose (4 mg/3 mL) subcutane ous pen injector Inject 1 mg every week by subcutan eous route. 2024 active Not Available Not Available Not Avai lable Paxlovid 150 mg-100 mg tablets in a dose pack (Moderate Renal Dose) TAKE DIRECTED 12/25 completed Not Available Not Available Not Available Vitals Date Recorded Body height Body mass index (BMI) Body weight Body temperature Heart rate Oxygen saturation Oxygen saturation in Arterial blood by Pulse oximetry Systolic And Diastolic Provider Name and Address Organization Details Last Updated DateTime 5 160.02 cm 26.7 kg/m2 27088.4 5 g 96.8 [degF] 89 /min 96 % 96 % 126/64 mm[Hg] DIANNE De Dios [place] [facility] [place] [facility] 5 09:29:56 Social History Question Answer Notes LastModified by Organization Details LastModified Time Tobacco Smoking Status Former Smoker QUIT IN 1993 Not Available [facility] 11/08/2022 02:39:30 Do You Have An Advance Directive? Yes MIGRATION.030 [id number] Information not available 11/08/2022 Are You Blind Or Do You Have Difficulty Seeing? No MIGRATION.030 [id number] Information not available 11/08/2022 What Is Your Level Of Caffeine Consumption? None MIGRATION.030 [id number] Information not available 11/08/2022 How Much Tobacco Do You Chew? None MIGRATION.030 [id number] Information not available 11/08/2022 In The 14 Days Before Symptom Onset, Have You Had Close Contact With A Laboratory-confi rmed COVID-19 While That Case Was Ill? No MIGRATION.030 [id number] Information not available 11/08/2022 In The 14 Days Before Symptom Onset, Have You Had Close Contact With A Person Who Is Under Investigation For COVID-19 While That Person Was Ill? No MIGRATION.030 [id number] Information not available 11/08/2022 Are You Deaf Or Do You Have Serious Difficulty Hearing? No MIGRATION.030 [id number] Information not available 11/08/2022 What Type Of Diet Are You Following? REGULAR MIGRATION.030 [id number] Information not available 11/08/2022 Which Illicit Or Recreational Drugs Have You Used? NONE MIGRATION.030 [id number] Information not available 11/08/2022 What Is The Highest Grade Or Level Of School You Have Completed Or The Highest Degree You Have Received? [id number] [id number].300026 Information not available 11/08/2022 Do You Have An Electrostatic Air Filter? No Information not available 01/23/2024 Have There Been Any Changes To Your Family Or Social Situation? No MIGRATION.0301 [id number] Information not available 11/08/2022 What Is The Fluoride Status Of Your Home? Unknown MIGRATION.0301 639702 Information not available 11/08/2022 When Did You Quit Smoking? 14+yearssinceltaya gomez MIGRATION.0301 [id number] Information not available 11/08/2022 Are There Any Guns Present In Your Home? No MIGRATION.0301 [id number] Information not available 11/08/2022 Do You Have A Humidifier? No Information not available 01/23/2024 Do You Use Insect Repellent Routinely? No MIGRATION.0301 [id number] Information not available 11/08/2022 Where Do You Live? SingleLevelHouse MIGRATION.0301 [id number] Information not available 11/08/2022 Are You Able To Care For Yourself? Yes Information not available 12/20/2022 Are You Blind Or Do Yo Have Difficulty Seeing? No [email or web address] Information not available 12/20/2022 Are You Deaf Or Do You Have Serious Difficulty Hearing? No [email or web address] Information not available 12/20/2022 Live Alone Of With Others? Alone [email or web address] Information not available 12/20/2022 Do You Have A Medical Power Of Human Service Technician? Yes MIGRATION.0301 [id number] Information not available 11/08/2022 Do You Have Moisture Problems In Your Home? No Information not available 01/23/2024 What Was The Date Of Your Most Recent Tobacco Screening? 10/29/2024 Information not available 10/29/2024 How Many Children Do You Have? 1 Information not available 01/23/2024 Do You Have Any Pets? Yes MIGRATION.0301 [id number] Information not available 11/08/2022 What Is Your Relationship Status? MIGRATION.0301 [id number] Information not available 11/08/2022 Do You Use Your Seat Belt Or Car Seat Routinely? Yes MIGRATION.0301 [id number] Information not available 11/08/2022 Do You Have Smoke And Carbon Monoxide Detectors In Your Home? Yes MIGRATION.0301 [id number] Information not available 11/08/2022 At What Age Did You Start Smoking Tobacco? 16 MIGRATION.0301 [id number] Information not available 11/08/2022 Are You Passively Exposed To Smoke? No MIGRATION.0301 [id number] Information not available 11/08/2022 Are There Any Smokers In Your House? No MIGRATION.0301 908476 Information not available 11/08/2022 Do You Use Sunscreen Routinely? No MIGRATION.0301 [id number] Information not available 11/08/2022 Have You Recently Traveled Abroad? No MIGRATION.0301 [id number] Information not available 11/08/2022 Do You Have Difficulty Walking Or Climbing Stairs? No MIGRATION.0301 [id number] Information not available 11/08/2022 Do You Have Any Dietary Restrictions? No MIGRATION.0301 516146 Information not available 11/08/2022 Sex: Female Functional Status Question Answer Note LastModified by Organizat ion Details LastModified Time Do you use any illicit or recreational drugs? No MIGRATION.46496 02958 Information not available 11/08/2022 Do you or have you ever used any other forms of tobacco or nicotine? No MIGRATION.45877 42852 Information not available 11/08/2022 What is your level of alcohol consumption? None MIGRATION.44871 30775 Information not available 11/08/2022 Have you been exposed to chemicals or toxins? No Not that aware of Information not available 10/29/2024 Do you have transportation difficulties? No MIGRATION.49678 96006 Information not available 11/08/2022 Are you able to walk? YESWOREST MIGRATION.95344 27042 Information not available 11/08/2022 Do you have difficulty doing errands alone? No MIGRATION.41244 56944 Information not available 11/08/2022 Are you able to care for yourself? Yes daughter lives next door [email or web address] Information not available 12/24/2023 What is your occupation? Retired MIGRATION.24932 81715 Information not available 11/08/2022 Do you have difficulty dressing or bathing? No MIGRATION.03033 25955 Information not available 11/08/2022 What is your exercise level? Occasional MIGRATION.77572 57310 Information not available 11/08/2022 Mental Status Question Answer Note LastModified by Organizat ion Details LastModified Time Do you feel stressed (tense, restless, nervous, or anxious, or unable to sleep at night)? [id number] MIGRATION.[id number] 26 Information not available 11/08/2022 Do you have difficulty concentrating, remembering or making decisions? No MIGRATION.[id number] 26 Information not available 11/08/2022 Family History Relationship Description Onset Age of this Age Resolved Age Notes LastModified by Organization Details LastModified Time Father Heart disease MIGRATION.625 [id number] Not available 11/08/2022 02:45:48 Father Essential hypertension [id number] Not available 11/08/2022 02:45:48 Father Diabetes mellitus [id number] Not available 11/08/2022 02:45:48 Mother Congestive heart failure [id number] Not available 11/08/2022 02:45:49 Brother Diabetes mellitus [id number] Not available 11/08/2022 02:45:49 Sister Hypothyroidi sm [id number] Not available 11/08/2022 02:45:49 Sister Malignant neoplasm of lung [id number] Not available 11/08/2022 02:45:49 Father Obstructive sleep apnea syndrome [email or web address] Not available 2023 15:44:20 Father Malignant neoplasm of prostate [email or web address] Not available 2023 15:44:49 Medical History Condition Response DIABETES, TYPE Y HYPERTENSION Y ANEMIA/BLOOD DISORDER Y Gynecological History Statement/Question Response Abnormal Pap N Date of Last Mammogram 12/23/2020 Date of Last Colonoscopy 06/19/2016 Most Recent Bone Density 12/23/2020 Date of Last Pap Date of Last Pap Smear 12/09/2012 Current Control Method Menopause Age at Menarche 14 Most Recent Mammogram 12/23/2020 Breast Problems no Obstetrics History GPAL:G 2 P 2 0 0 2 Type Value Full Term 2 Living 2 Total 2 Immunizations Vaccine Type Date Status Note Provider Nam e and Address Organization Details Recorded Time COVID-19, mRNA, LNP-S, PF, 30 mcg/0.3 mL dose 2 completed Not Available [facility] 11/08/2022 02:58:59 COVID-19, mRNA, LNP-S, PF, 30 mcg/0.3 mL dose 1 completed Not Available [facility] 11/08/2022 02:58:59 COVID-19, mRNA, LNP-S, PF, 30 mcg/0.3 mL dose 1 completed Not Available [facility] 11/08/2022 02:58:59 COVID-19, mRNA, LNP-S, PF, 30 mcg/0.3 mL dose 1 completed Not Available [facility] 11/08/2022 02:58:59 Influenza, high-dose, trivalent, PF 0 completed Not Available [facility] 11/08/2022 02:58:59 Influenza, high-dose, trivalent, PF 9 completed Not Available [facility] 11/08/2022 02:58:59 influenza, unspecified formulation 7 completed Not Available [facility] 11/08/2022 02:59:00 Influenza, high-dose, quadrivalent, PF 1 completed Not Available [facility] 11/08/2022 02:59:00 Influenza, high-dose, trivalent, PF 8 completed Not Available [facility] 11/08/2022 02:59:00 Pneumococcal conjugate PCV 13 7 completed Not Available [facility] 11/08/2022 02:59:00 pneumococcal polysaccharide PPV23 4 completed Not Available [facility] 11/08/2022 02:59:00 tetanus toxoid, unspecified formulation 4 completed DIANNE [place], [place] - [facility] 04/17/2024 16:48:32 Past Encounters Encounter ID Performer Location Encounter Start Date Encounter Closed Date Diagnosis/Indication Diagnosis SNOMED-CT Code Diagnosis ICD10 Code Diagnosis Note [id number] Evelio Shukla MD [facility] [address] [facility] [place] [address] 03/24/2025 09:25:10 03/24/2025 10:14:48 Left lower quadrant pain 251131652 R10.32 most likely diverticul itis Health Concerns Section Related Observation LastModified by Organization Detai ls LastModified Time None Recorded Concern Status LastModified by Organization Details LastModified Time None Recorded Payers Encounter Date Sequence Insurance Name Policy Number Policy Thompson Covered Member ID Thompson Member ID Guarantor Name 03/24/2025 1 [facility] (MEDICARE REPLACEMENT/A DVANTAGE - HMO) [id number] Celeste Davies [id number] Celeste Davies Notes Date Note Type Note Provider Name and Address Organization Details Recorded Time 03/24/2025 text/html Pt is here today for Left lower abdominal pain.States that it woke her up 6 days ago. Pain level today is a 6-7/10Pain is intermittent but daily, no associated symtoms of N/V or change in BM, NO BLOOD IN BRITT STOLLS, NO FEVERno urinary symptoms or fever Seen Dr. Tian on 03/12 did vaginal US- Ovary are normal, scheduled for a D&C and a Hysteroscopy. Evelio Shukla MD [address] [place] [address] [address], [place], [address], [facility] [employer] 03/24/2025 09:54:38 OBGyn Episode No OBEpisode recorded.
--- OUTSIDE RECORDS SUMMARY | 2025-03-24 10:01 | XMS_ITS | Clinical Summary ---
Author Organization [facility] Address [address] [place] [address] Care Team Providers Care It Applications Manager Name Role Phone Unavailable Primary Care Provider Unavailabl e Source Comments [facility],non-owned Affiliates and Associated Physician Practices is amultiple site organization consisting of ambulatory clinics and hospital sitesin [place], [place], [place] and [place]. This disclosure is being madepursuant to the Care Everywhere program and may not contain all information available regarding this patient. 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 Gender Identity Not on file Sexual Orientation Not on file Plan of Treatment Health Maintenance Due Date Last Done Comments BONE DENSITY TESTING 1950 HEPATITIS C SCREENING 10/24/1966 DTAP/TDAP/TD VACCINES (1 - Tdap) 1967 PNEUMOCOCCAL VACCINE 50+ (1 of 1 - PCV) 1998 ZOSTER VACCINE (1 of 2) 1998 Respiratory Syncytial Virus (RSV) Vaccine Pt: or over 60 yrs (1 - 1-dose 75+ series) 2023 COVID-19 VACCINE ( - 2023-2 5 season) 2024 DEPRESSION SCREENING 09/10/2024 INFLUENZA VACCINE (#1) 2025 HEPATITIS B VACCINE Aged Out No longe r eligible based on patient's age to complete this topic HIB VACCINE Aged Out No longer eligi ble based on patient's age to complete this topic HPV VACCINE Aged Out No longer eligi ble based on patient's age to complete this topic MENINGOCOCCAL (Group B) VACC INE SHARED DECISION-MAKING Aged Out No longer eligibl e based on patient's age to complete this topic MENINGOCOCCAL GROUPS A/C/Y/W VACCINE Aged Out No longer eligible b ased on patient's age to complete this topic
--- OUTSIDE RECORDS SUMMARY | 2025-03-24 10:01 | XMS_ITS | Encounter Summary ---
Author Organization [facility] Address [address] [place] [address] Care Team Providers Care Store Operations Specialist Name Role Phone Unavailable Primary Care Provider Unavailabl e Encounter Details Date Type Department Care Team (Late st Contact Info) Description 07/14/2024 Lab Requisition [facility] - DermPath Lab [address] [place] [phone] Daniel Somers MD [facility] DERMATOLOGY [address] [place] [phone] Neoplasm of uncertain behavior of skin Social History Tobacco Use Types Packs/Day Years Used Date Smoking Tobacco: Never Assessed Comments Unknown Sex and Gender Information Value Date Recorded Sex Assigned at Not on file Legal Sex Female 11:20 AM CERTIFIED ORTHOPTIST Gender Identity Not on file Sexual Orientation Not on file documented as of this encounter Plan of Treatment Not on file documented as of this encounter Procedures Procedure Name Priority Date/Time Associated Diagnosis Comments DERMATOPATHOLOGY Routine 07/14/2024 3:33 AM CERTIFIED ORTHOPTIST Neoplasm of uncertain behavior of skin documented in this encounter Results * DERMATOPATHOLOGY (07/14/2024 3:33 AM CERTIFIED ORTHOPTIST) Case Report Dermatopathology Report Case: [id number] Authorizing Provider: Daniel Somers MD Collected: 07/14/2024 03:33 AM Ordering Location: [facility] Physician [facility] - Received: 07/15/2024 01:36 PM DermPath Lab Pathologist: Luisa Brown MD Specimen: Skin, left malar cheek 4 2:15 PM CERTIFIED ORTHOPTIST DERMATOPATHOLOGY LABORATORY Final Diagnosis Specimen A. SKIN, left malar cheek: SEBORRHEIC KERATOSIS, INFLAMED (L82.0) 4 2:15 PM [facility] DERMATOPATHOLOGY LABORATORY at 1415 CERTIFIED ORTHOPTIST Clinical History BCC 4 2:15 PM [facility] DERMATOPATHOLOGY LABORATORY Gross Description Specimen A: Received is one formalin filled container labeled with the patient's name and designated left malar cheek. The specimen consists of a shave biopsy measuring 4x4x1 mm. Jar 0. 2:15 PM [facility] DERMATOPATHOLOGY LABORATORY Microscopic Description Specimen A. SKIN, left malar cheek: There is hyperkeratosis, parakeratosis, papillomatosis, and acanthosis of the epidermis. There is a lymphohistiocytic infiltrate within the papillary dermis that is focally lichenoid. 4 2:15 PM [facility] DERMATOPATHOLOGY LABORATORY Disclaimer An external and internal positive and negative controls are appropriate for the histochemical, immunohistochemical and immunofluorescence stain(s) in this case (if any), except where stated explicitly. The performance characteristics of the stain(s) cited in this report were developed and its performance characteristic determined by the Dermatopathology Laboratory at [facility], directed by Dr. Hossein Arenas. These tests need not be, and therefore are not, approved by the [place] Food and Drug Administration. The tests are used for clinical purposes. Billing Codes Specimen Charges Stain Charges 30602 1 4 2:15 PM [facility] DERMATOPATHOLOGY LABORATORY Embedded Images 2:15 PM [facility] DERMATOPATHOLOGY LABORATORY Pathology/Cytolo gy TISSUE SPECIMEN FROM SKIN / Unknown 07/14/2024 3:33 AM CERTIFIED ORTHOPTIST 07/15/2024 1:36 PM CERTIFIED ORTHOPTIST us Daniel Somers MD LAB - PATHOLOGY/CYTOLOGY FLACO ABREU Final Result DERMATOPATHOLOGY LABORATORY [facility] - Department of Dermatology [address], [address] [phone] documented in this encounter Visit Diagnoses Diagnosis Neoplasm of uncertain behavior of skin documented in this encounter
[2025-03-24 10:16] LABS: Estimated Glomerular Filt Rate 27
[2025-03-24 11:39] LABS: Add Urine Microscopic? YES; Appearance Urine Clear (Clear); Glucose Urine UA 3+ mg/dL (Negative); Leukocyte Esterase Ur 1+ LEU/UL (Negative); Need Manual Microscopic Reviewed; Nitrate Urine Negative (Negative); Non Pathogenic Casts 0-2; Specific Grav Ur 1.017 (1.001-1.035)
[2025-03-24 11:46] LABS: Hematocrit 39.9 % (37.0-47.0); Hemoglobin 12.5 g/dL (12.0-15.0); Immature Granulocyte Percent A 0.1 % (0-0.5); Lymphocytes Absolute Auto 1.72 K/mm3 (0.9-3.2); Mean Corpuscular HGB Conc 31.3 g/dl (32-36); Mean Corpuscular Hemoglobin 28.9 pg (26-34); Mean Corpuscular Volume 92.4 fl (80-100); Nucleated Red Blood Cells Absolute Auto 0.000 K/mm3 (0.0-0.012); Nucleated Red Blood Cells Perc 0.0 % (0.0-0.2); Platelet Count Result 285 k/mm3 (150-375); Red Blood Count 4.32 M/mm3 (4.2-5.4); White Blood Count 7.6 K/mm3 (4.5-10.0)
[2025-03-24 12:14] LABS: Alanine Aminotransferase 15 U/L (6-35); Albumin Level 4.0 g/dL (3.5-5.1); Alkaline Phosphatase 108 U/L (38-126); Amylase 60 U/L (30-110); Anion Gap 9 mmol/L (4-12); Aspartate Amino Transferase 25 U/L (14-36); Bilirubin,Total 0.4 mg/dL (0.2-1.3); Blood Urea Nitrogen 30 mg/dL (7-17); Calcium 9.2 mg/dL (8.4-10.2); Carbon Dioxide 23 mmol/L (22-30); Chloride 109 mmol/L (98-107); Estimated Glomerular Filt Rate 36; Glucose 134 mg/dL (65-110); Lipase 92 U/L (23-300); Potassium 3.7 mmol/L (3.4-5.0); Sodium 141 mmol/L (137-145); Total Protein 7.8 g/dL (6.3-8.2)
== END 2025-03-24 09:47 | disposition home or self-care (01) ==
PROVIDERS: PCP Internal Medicine; Visit Provider Internal Medicine
DX: D35.02 Benign neoplasm of left adrenal gland (principal)
CPT/HCPCS: 36415; 74176; 80053; 81001; 82150; 83690; 85025

== ENCOUNTER 2025-04-02 10:24 | Outpatient (CLI) | payer MEDICARE, SELFPAY ==
--- NOTE | ~2025-04-02 | US_ITS ---
US retroperitoneal comp 04/02/2025 11:11 Procedure: Realtime transabdominal ultrasound of the kidneys and bladder. Indication: Chronic kidney disease stage III Comparison: No prior studies for comparison. Findings: Renal echotexture is normal bilaterally without hydronephrosis, contour deforming mass or r enal calculus. The right kidney measures 11.4 cm and left kidney measures 9.1 cm. Bladder within nor mal limits. Impression: 1: Unremarkable renal ultrasound. No stones, masses or hydronephrosis. Reviewed, dictated and finalized at location A. Impression: 1: Unremarkable renal ultrasound. No stones, masses or hydronephrosis.
== END 2025-04-02 10:25 | disposition home or self-care (01) ==
PROVIDERS: PCP Internal Medicine; Visit Provider Internal Medicine
DX: N13.30 Unspecified hydronephrosis (principal)
CPT/HCPCS: 76770

== ENCOUNTER 2025-04-21 08:26 | Outpatient (CLI) | payer MEDICARE, SELFPAY ==
--- OUTSIDE RECORDS SUMMARY | 2025-04-21 08:37 | XMS_ITS | Encounter Summary ---
Author Organization [facility] Address [address] [place] [address] Care Team Providers Care Automatic I Threading Machine Feeder Name Role Phone Unavailable Primary Care Provider Unavailabl e Encounter Details Date Type Department Care Team (Late st Contact Info) Description 07/14/2024 Lab Requisition [facility] - DermPath Lab [address] [place] [phone] Daniel Somers MD [facility] DERMATOLOGY [address] [place] [phone] Neoplasm of uncertain behavior of skin Social History Tobacco Use Types Packs/Day Years Used Date Smoking Tobacco: Never Assessed Comments Unknown Sex and Gender Information Value Date Recorded Sex Assigned at Not on file 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 Gender Identity Not on file Sexual Orientation Not on file documented as of this encounter Plan of Treatment Not on file documented as of this encounter Procedures Procedure Name Priority Date/Time Associated Diagnosis Comments DERMATOPATHOLOGY Routine 07/14/2024 3:33 AM STRAP FOLDING MACHINE OPERATOR Neoplasm of uncertain behavior of skin documented in this encounter Results * DERMATOPATHOLOGY (07/14/2024 3:33 AM STRAP FOLDING MACHINE OPERATOR) Case Report Dermatopathology Report Case: [id number] Authorizing Provider: Daniel Somers MD Collected: 07/14/2024 03:33 AM Ordering Location: [facility] Physician [facility] - Received: 07/15/2024 01:36 PM DermPath Lab Pathologist: Luisa Brown MD Specimen: Skin, left malar cheek 4 2:15 PM STRAP FOLDING MACHINE OPERATOR DERMATOPATHOLOGY LABORATORY Final Diagnosis Specimen A. SKIN, left malar cheek: SEBORRHEIC KERATOSIS, INFLAMED (L82.0) 4 2:15 PM [facility] DERMATOPATHOLOGY LABORATORY at 1415 STRAP FOLDING MACHINE OPERATOR Clinical History BCC 4 2:15 PM [facility] DERMATOPATHOLOGY LABORATORY Gross Description Specimen A: Received is one formalin filled container labeled with the patient's name and designated left malar cheek. The specimen consists of a shave biopsy measuring 4x4x1 mm. Jar 0. 2:15 PM [facility] DERMATOPATHOLOGY LABORATORY Microscopic Description Specimen A. SKIN, left malar cheek: There is hyperkeratosis, parakeratosis, papillomatosis, and acanthosis of the epidermis. There is a lymphohistiocytic infiltrate within the papillary dermis that is focally lichenoid. 4 2:15 PM [facility] DERMATOPATHOLOGY LABORATORY Disclaimer An external and internal positive and negative controls are appropriate for the histochemical, immunohistochemical and immunofluorescence stain(s) in this case (if any), except where stated explicitly. The performance characteristics of the stain(s) cited in this report were developed and its performance characteristic determined by the Dermatopathology Laboratory at [facility], directed by Dr. Hossein Arenas. These tests need not be, and therefore are not, approved by the [place] Food and Drug Administration. The tests are used for clinical purposes. Billing Codes Specimen Charges Stain Charges 63852 1 4 2:15 PM [facility] DERMATOPATHOLOGY LABORATORY Embedded Images 2:15 PM [facility] DERMATOPATHOLOGY LABORATORY Pathology/Cytolo gy TISSUE SPECIMEN FROM SKIN / Unknown 07/14/2024 3:33 AM STRAP FOLDING MACHINE OPERATOR 07/15/2024 1:36 PM STRAP FOLDING MACHINE OPERATOR us Daniel Somers MD LAB - PATHOLOGY/CYTOLOGY FLACO ABREU Final Result DERMATOPATHOLOGY LABORATORY [facility] - Department of Dermatology [address], [address] [phone] documented in this encounter Visit Diagnoses Diagnosis Neoplasm of uncertain behavior of skin documented in this encounter
--- OUTSIDE RECORDS SUMMARY | 2025-04-21 08:37 | XMS_ITS | Clinical Summary ---
Author Organization [facility] Address [address] [place] [address] Care Team Providers Care Apartment Maintenance Supervisor Name Role Phone Unavailable Primary Care Provider Unavailabl e Source Comments [facility],non-owned Affiliates and Associated Physician Practices is amultiple site organization consisting of ambulatory clinics and hospital sitesin [place], [place], [place] and [place]. This disclosure is being madepursuant to the Care Everywhere program and may not contain all information available regarding this patient. 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
--- OUTSIDE RECORDS SUMMARY | 2025-04-21 08:37 | XMS_ITS | Clinical Summary ---
Author Organization [facility] Address [address] [place] [address] Care Team Providers Care Ecommerce Marketing Specialist Name Role Phone Ambreen Bassett MD Primary Care Provider [phone] Medications ergocalciferol 1.25 MG (50169 UT) capsule TAKE 1 CAPSULE BY MOUTH ONCE WEEKLY 15 capsule 2 10/27/2024 Active indapamide (LOZOL) 1.25 MG tablet Take 1 tablet (1.25 mg total) by mouth every morning 100 tablet 02/23/2025 Active Encounters Date Type Department Care Team Description 02/23/2025 Refill [facility], [facility] [address] [phone] Hoang Neal DO from Last 3 Months Social History Tobacco [...] Description 06/23/2025 1:00 PM CDT Office Visit [place] [facility], [facility] [address] [facility] [address] [place] [phone] Hoang Neal DO [address] [facility] [address] [place] [address] Health Maintenance Due Date Last [...] patient's age to complete this topic Insurance Advance Directives Documents on File Type Date Recorded Patient Insight Leader Expl anation Advance Care Planning 01/21/2024 3:42 PM Care Teams Ecommerce Marketing Specialist Relationship Specialty Start Date End Date Ambreen Bassett MD [address] [place] [address] PCP - General Internal Medicine 08/21/23
[2025-04-21 09:08] LABS: INR 1.0; Prothrombin Time 13.8 Seconds (11.1-14.7)
[2025-04-21 09:09] LABS: Partial Thromboplastin Time 28.4 Seconds (22.3-36.8)
== END 2025-04-21 08:27 | disposition home or self-care (01) ==
LOC: ANHSURGERY 08:28
PROVIDERS: Anesthesiology; PCP Internal Medicine; Visit Provider Obstetrics & Gynecology
DX: Z01.818 Encounter for other preprocedural examination (principal); R93.89 Abnormal findings on diagnostic imaging of other specified body structures
CPT/HCPCS: 36415; 85610; 85730

== ENCOUNTER 2025-04-27 01:37 | Day surgery (SDC) | payer MEDICARE, SELFPAY ==
[2025-03-23 09:53] VITALS: BMI 27.1
--- NOTE | 2025-03-23 10:05 | PC.NURSE ---
Report to the Outpatient Waiting Room, entrance under the green pavilion located off [facility], at time __0800am on date _03/30/25 . Planned Procedure Time: __1000am .? Time changes happen often and if your time is changed the preop area will call you the afternoon before. - You and your visitor will be asked to self-screen and do not enter if you have any COVID symptoms. Please call surgeon if you need to reschedule. - A mask is optional within the hospital at this time. Patients may have clear liquids (water, carbonated beverages, clear teas, apple juice) until 3 hours prior to surgery with a maximum of 20 ounces. - No food from midnight until time of surgery and no smoking, or chewing tobacco (or any form of nicotine). No chewing gum, candy or mints. (0700am) Take only the following medications with a SIP of water on the morning of surgery: ___Inhalers if needed DO NOT STOP ANY OF YOUR OTHER PRESCRIPTION MEDICATIONS PRIOR TO SURGERY EXCEPT THE FOLLOWING Hold all vitamins and supplements for 3 days per anesthesiologist. Date of last dose is 03/26/25 Medications to discontinue per physician NONE Date to take last dose NONE Please no make-up, nail korean, hairspray, perfume, deodorant, or body powder the day of surgery.? No jewelry (including any body piercings) or valuables the day of surgery, leave them at home.? Please take a shower or bath the night before, or the morning of, surgery with an antibacterial soap.? Wear comfortable, loose fitting clothing.? - Jewelry must be removed prior to entering the operating room.? Rings and piercings that are not removed may be cut off. - The hospital will not accept responsibility for valuables.? - Please leave all valuables, including medications, at home the day of surgery. If you are going home after surgery, a licensed otr tanker truck driver must drive you home.? - NO public transportation without another adult if you receive anesthesia. - We recommend that an adult stay with you for 24 hours following discharge. - We also recommend that you do not drive, make important decision, drink alcoholic beverages, or take any drugs that were not prescribed by your health care provider for at least 24 hours after your discharge time. Follow any additional instructions given to you from your surgeon. Telephone instructions given to ___Patient and asked if any additional questions and then verbalized understanding. Patient advised to call surgeon office or pre surgery nurse liaison [phone] if any additional questions.
[2025-04-16 12:05] VITALS: BMI 27.1
--- NOTE | 2025-04-16 12:24 | PC.NURSE ---
Report to the Outpatient Waiting Room, entrance under the green pavilion located off [facility], at time ___6:00AM__ on date __04/27/25___. Planned Procedure Time: ___7:30AM___.? Time changes happen often and if your time is changed the preop area will call you the afternoon before. - You and your visitor will be asked to self-screen and do not enter if you have any COVID symptoms. Please call surgeon if you need to reschedule. - A mask is optional within the hospital at this time. Patients may have clear liquids (water, carbonated beverages, clear teas, apple juice) until 3 hours prior to surgery (4:30AM) with a maximum of 20 ounces. - No food from midnight until time of surgery and no smoking, or chewing tobacco (or any form of nicotine). No chewing gum, candy or mints. Take only the following medications with a SIP of water on the morning of surgery: ___ALBUTEROL INHALER NEEDED DO NOT STOP ANY OF YOUR OTHER PRESCRIPTION MEDICATIONS PRIOR TO SURGERY EXCEPT THE FOLLOWING Hold all vitamins and supplements for 3 days per anesthesiologist.LAST DOSE 04/23/25 Please no make-up, nail serbian, hairspray, perfume, deodorant, or body powder the day of surgery.? No jewelry (including any body piercings) or valuables the day of surgery, leave them at home.? Please take a shower or bath the night before, or the morning of, surgery with an antibacterial soap.? Wear comfortable, loose fitting clothing.? - Jewelry must be removed prior to entering the operating room.? Rings and piercings that are not removed may be cut off. - The hospital will not accept responsibility for valuables.? - Please leave all valuables, including medications, at home the day of surgery. If you are going home after surgery, a licensed city bus driver must drive you home.? - NO public transportation without another adult if you receive anesthesia. - We recommend that an adult stay with you for 24 hours following discharge. - We also recommend that you do not drive, make important decision, drink alcoholic beverages, or take any drugs that were not prescribed by your health care provider for at least 24 hours after your discharge time. Follow any additional instructions given to you from your surgeon. Telephone instructions given to ____PATIENT and asked if any additional questions and then verbalized understanding. Patient advised to call surgeon office or pre surgery nurse liaison [phone] if any additional questions.
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
--- OUTSIDE RECORDS SUMMARY | 2025-04-27 01:39 | XMS_ITS | Clinical Summary ---
Author Organization [facility] Facility Address [address] [place] [address] Care Team Providers Care Concrete Panel Installer Name Role Phone Ambreen Bassett MD Primary Care Provider [phone] Medications ergocalciferol 1.25 MG (51317 UT) capsule TAKE 1 CAPSULE BY MOUTH ONCE WEEKLY 15 capsule 2 10/27/2024 Active indapamide (LOZOL) 1.25 MG tablet Take 1 tablet (1.25 mg total) by mouth every morning 100 tablet 02/23/2025 Active Encounters Date Type Department Care Team Description 02/23/2025 Refill [facility], [facility] [address] [phone] Hoang Neal DO from Last [...] Description 06/23/2025 1:00 PM CDT Office Visit [facility], 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
--- OUTSIDE RECORDS SUMMARY | 2025-04-27 01:39 | XMS_ITS | Encounter Summary ---
Author Organization [facility] Address [address] [place] [address] Care Team Providers Care Geographic Analyst Name Role Phone Unavailable Primary Care Provider Unavailabl e Encounter Details Date Type Department Care Team (Late st Contact Info) Description 07/14/2024 Lab Requisition [facility] - DermPath Lab [address] [place] [phone] Daniel Somers MD [facility] DERMATOLOGY [address] [place] [phone] Neoplasm of uncertain behavior of skin Social History Tobacco Use Types Packs/Day Years Used Date Smoking Tobacco: Never Assessed Comments Unknown Sex and Gender Information Value Date Recorded Sex Assigned at Not on file Legal Sex Female 11: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 Gender Identity Not on file Sexual Orientation Not on file documented as of this encounter Plan of Treatment Not on file documented as of this encounter Procedures Procedure Name Priority Date/Time Associated Diagnosis Comments DERMATOPATHOLOGY Routine 07/14/2024 3:33 AM SUPERVISOR 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 Neoplasm of uncertain behavior of skin documented in this encounter Results * DERMATOPATHOLOGY (07/14/2024 3:33 AM SUPERVISOR 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) Case Report Dermatopathology Report Case: [id number] Authorizing Provider: Daniel Somers MD Collected: 07/14/2024 03:33 AM Ordering Location: [facility] Physician [facility] - Received: 07/15/2024 01:36 PM DermPath Lab Pathologist: Luisa Brown MD Specimen: Skin, left malar cheek 4 2:15 PM SUPERVISOR 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 DERMATOPATHOLOGY LABORATORY Final Diagnosis Specimen A. SKIN, left malar cheek: SEBORRHEIC KERATOSIS, INFLAMED (L82.0) 4 2:15 PM [facility] DERMATOPATHOLOGY LABORATORY at [address] SUPERVISOR 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 Clinical History BCC 4 2:15 PM [facility] DERMATOPATHOLOGY LABORATORY Gross Description Specimen A: Received is one formalin filled container labeled with the patient's name and designated left malar cheek. The specimen consists of a shave biopsy measuring 4x4x1 mm. Jar 0. 2:15 PM [facility] DERMATOPATHOLOGY LABORATORY Microscopic Description Specimen A. SKIN, left malar cheek: There is hyperkeratosis, parakeratosis, papillomatosis, and acanthosis of the epidermis. There is a lymphohistiocytic infiltrate within the papillary dermis that is focally lichenoid. 4 2:15 PM [facility] DERMATOPATHOLOGY LABORATORY Disclaimer An external and internal positive and negative controls are appropriate for the histochemical, immunohistochemical and immunofluorescence stain(s) in this case (if any), except where stated explicitly. The performance characteristics of the stain(s) cited in this report were developed and its performance characteristic determined by the Dermatopathology Laboratory at [facility], directed by Dr. Hossein Arenas. These tests need not be, and therefore are not, approved by the [place] Food and Drug Administration. The tests are used for clinical purposes. Billing Codes Specimen Charges Stain Charges 68040 1 4 2:15 PM [facility] DERMATOPATHOLOGY LABORATORY Embedded Images 2:15 PM [facility] DERMATOPATHOLOGY LABORATORY Pathology/Cytolo gy TISSUE SPECIMEN FROM SKIN / Unknown 07/14/2024 3:33 AM SUPERVISOR 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 07/15/2024 1:36 PM SUPERVISOR 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 us Daniel Somers MD LAB - PATHOLOGY/CYTOLOGY FLACO ABREU Final Result DERMATOPATHOLOGY LABORATORY [facility] - Department of Dermatology [address], [address] [phone] documented in this encounter Visit Diagnoses Diagnosis Neoplasm of uncertain behavior of skin documented in this encounter
--- OUTSIDE RECORDS SUMMARY | 2025-04-27 01:39 | XMS_ITS | Clinical Summary ---
Author Organization [facility] Address [address] [place] [address] Care Team Providers Care Geothermal Operations Engineer Name Role Phone Unavailable Primary Care Provider Unavailabl e Source Comments [facility] [employer],non-owned Affiliates and Associated Physician Practices is amultiple site organization consisting of ambulatory clinics and hospital sitesin [place], [place], [place] and [place]. This disclosure is being madepursuant to the Care Everywhere program and may not contain all information available regarding this patient. 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
[2025-04-27 06:40] VITALS: BP 154/81; PULSE 76; RESP 16; TEMP 36.7; O2SAT 96
[2025-04-27] MEDS: ACETAMINOPHEN 500 MG TABLET 1000 MG PO (06:40)
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
--- NOTE | 2025-04-27 08:46 | WPDHPUPDATE1 ---
History and Physical Update Update Date/Time: 04/27/25 08:46 History and Physical has been reviewed, including an updated exam of the patient. There are NO changes in the patient's condition. Risks, benefits, and alternatives have been discussed and questions answered. Patient agrees to proceed with hysteroscopy with D&C.
--- NOTE | 2025-04-27 09:16 | S_PTH ---
PATIENT: Celeste Davies LOC: [facility] U#:[id number] AGE/SX: 74/F ROOM: RE04/27/[address]: Lorie Tian MD : 1950 BED: DIS: 04/27/2025 SPEC #: [id number] RECD: 04/27/25 10:20 STATUS: SOHAM REQ #: [id number] CHRISTINA: 04/27/25 09:[address]: Lorie Tian DEPT: [facility] Surgical RECD BY: Becca Gregory ENTERED: 04/27/25 10:20 SP TYPE: Surgical OTHR DR: Serjio CrookMD Tissues: A - Endometrial Curettings Procedures: Hematoxylin and Eosin Stain Gross and Microscopic Level 4
--- NOTE | 2025-04-27 09:33 | P.OP_ITS ---
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 Bilateral tubal ostia visualized. Good hemostasis at end of case. Fluid deficit 210cc Description of Procedure Celeste was taken to the operating room where she was placed under sedation without complications. She was then prepped and draped in the usual sterile fashion in the dorsal lithotomy position with her legs in low Farhan stirrups. A time-out was performed and no perioperative antibiotics were indicated. A bivalve speculum was placed within the vagina where the cervix was easily identified. The anterior lip of the cervix was grasped with a single-tooth tenaculum. The cervix was then serially dilated to allow for the hysteroscope, but it was noted to be stenotic. The hysteroscope was advanced into the cervix where scar tissue was noted. Using the hysteroscopic alligator forceps, the scar tissue was slowly and carefully divided and the uterine cavity was then identified. The hysteroscope was slowly and carefully advanced into the cavity with the above findings noted. Due to the stenotic cervix, I used the Aveta Feeding Forwardl tissue shaver to remove the polyp as well as obtain endometrial samplings from all quadrants of the uterus. Good hemostasis was noted. All instruments were removed from the vagina. Sponge, lap, instrument, and needle counts were correct at the end of the procedure. Patient was awoken from anesthesia and taken to recovery with plans of same-day discharge home. Estimated Blood Loss 5 IV Fluids 800 Pathology Yes (endometrial shavings with polyp) Complications No immediate complications Condition Stable Disposition Same day [facility] Billing Surgery - Charge Forward: Surgery Billing
[2025-04-27 09:34] VITALS: BP 118/54; PULSE 76; RESP 14; O2SAT 97
[2025-04-27] MEDS: LACTATED RINGERS 1,000 ML 30 ML IV CONT (09:34)
[2025-04-27 10:00] VITALS: BP 141/55; PULSE 73
[2025-04-27 10:25] VITALS: BP 128/55; PULSE 65
== END 2025-04-27 10:30 | disposition home or self-care (01) ==
PROVIDERS: PCP Internal Medicine; Visit Provider Obstetrics & Gynecology
PROC: 0U5B8ZZ Destruction of Endometrium, Via Natural or Artificial Opening Endoscopic (ICD-10-PCS; CPT 58563; principal; 2025-04-27 09:00)
DX: R93.89 Abnormal findings on diagnostic imaging of other specified body structures (principal); N84.0 Polyp of corpus uteri; N88.2 Stricture and stenosis of cervix uteri; E11.9 Type 2 diabetes mellitus without complications; I10 Essential (primary) hypertension; J45.909 Unspecified asthma, uncomplicated; G47.33 Obstructive sleep apnea (adult) (pediatric); M19.90 Unspecified osteoarthritis, unspecified site; E66.9 Obesity, unspecified; Z68.27 Body mass index [BMI] 27.0-27.9, adult; Z79.51 Long term (current) use of inhaled steroids; Z79.84 Long term (current) use of oral hypoglycemic drugs; Z79.85 Long-term (current) use of injectable non-insulin antidiabetic drugs; Z99.89 Dependence on other enabling machines and devices; Z98.890 Other specified postprocedural states; Z90.49 Acquired absence of other specified parts of digestive tract; Z98.51 Tubal ligation status; Z87.891 Personal history of nicotine dependence; Z80.1 Family history of malignant neoplasm of trachea, bronchus and lung; Z82.49 Family history of ischemic heart disease and other diseases of the circulatory system
CPT/HCPCS: 58558; 82948; 88305; A9270; J2704; J3010; J7120

== ENCOUNTER 2025-05-19 09:22 | Outpatient (CLI) | payer MEDICARE, SELFPAY ==
--- NOTE | ~2025-05-19 | MM_ITS ---
EXAMINATION: MM screening [facility] BI w [facility] HISTORY: Screening TECHNIQUE: Craniocaudal and mediolateral oblique 3-D tomosynthesis images were obtained and synthetic 2-D images were generated. CAD analysis was submitted and interpreted. COMPARISON: Comparison to multiple prior studies sequentially, with oldest reviewed study dated , 03/01/2023 BREAST PARENCHYMAL COMPOSITION: There are scattered areas of fibroglandular density. FINDINGS: There is no evidence of suspicious mass, calcification, or architectural distortion to suggest malignancy in either breast. IMPRESSION: 1. No mammographic evidence of malignancy. 2. Recommend routine screening mammography in one year. BI-RADS Category 1: Negative Reviewed, dictated and finalized at location B.
--- OUTSIDE RECORDS SUMMARY | 2025-05-19 10:21 | XMS_ITS | Clinical Summary ---
Author Organization [facility] Address [address] [place] [address] Care Team Providers Care Leather Staker Name Role Phone Unavailable Primary Care Provider Unavailabl e Source Comments [facility] [employer],non-owned Affiliates and Associated Physician Practices is amultiple site organization consisting of ambulatory clinics and hospital sitesin [place], [place], [place] and [place]. This disclosure is being madepursuant to the Care Everywhere program and may not contain all information available regarding this patient. 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
--- OUTSIDE RECORDS SUMMARY | 2025-05-19 10:21 | XMS_ITS | Clinical Summary ---
Author Organization [facility] Facility Address [address] [place] [address] Care Team Providers Care Intelligence Engineer Name Role Phone Ambreen Bassett MD Primary Care Provider [phone] Medications ergocalciferol 1.25 MG (76464 UT) capsule TAKE 1 CAPSULE BY MOUTH ONCE WEEKLY 15 capsule 2 5 Active indapamide (LOZOL) 1.25 MG tablet TAKE 1 TABLET BY MOUTH EVERY MORNING 100 tablet 2 5 Active indapamide (LOZOL) 1.25 MG tablet Take 1 tablet (1.25 mg total) by mouth every morning 100 tablet 5 05/04/20 25 Discontinued Encounters Date Type Department Care Team Description 05/04/2025 Refill [facility], [facility] [address] [phone] Hoang Neal DO 02/23/2025 [facility] [address] [phone] Hoang Neal DO from Last 3 Months [...] Description 06/23/2025 1:00 PM CDT Office Visit [facility], [facility] [address] [facility] [address] [place] [phone] Hoang Neal DO [address] [facility] [address] [place] [address] Health Maintenance Due Date Last Done Comments Diabetes: Hemoglobin A1C 01/15/2024 Diabetes: Ophthalmology Exam 01/15/2024 Diabetes: Pedal Pulse Checked 01/15/2024 Diabetes: Sensory Foot Exam 01/15/2024 Diabetes: Visual Foot Exam 01/15/2024 Influenza Vaccine (#1) 2025 0, 06/06/2019, 06/20/2018, Additional history exists Pneumococcal Vaccine: 50+ Years Completed 02/06/2017, 01/08/2014 Hepatitis B Vaccine Aged Out No longe r eligible based on patient's age to complete this topic Insurance [facility] Medicare Advance Directives Documents on File Type Date Recorded Patient Applications Intern Expl anation Advance Care Planning 01/21/2024 3:42 PM Care Teams Intelligence Engineer Relationship Specialty Start Date End Date Ambreen Bassett MD [address] [place] [id number] PCP - General Internal Medicine 08/21/23
--- OUTSIDE RECORDS SUMMARY | 2025-05-19 10:21 | XMS_ITS | Encounter Summary ---
Author Organization [facility] Address [address] [place] [address] Care Team Providers Care Petrologist Name Role Phone Unavailable Primary Care Provider Unavailabl e Encounter Details Date Type Department Care Team (Late st Contact Info) Description 07/14/2024 Lab Requisition [facility] - DermPath Lab [address] [place] [phone] Daniel Somers MD [facility] DERMATOLOGY [address] [place] [phone] Neoplasm of uncertain behavior of skin Social History Tobacco Use Types Packs/Day Years Used Date Smoking Tobacco: Never Assessed Comments Unknown Sex and Gender Information Value Date Recorded Sex Assigned at Not on file Legal Sex Female 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 Physician [facility] - Received: 07/15/2024 01:36 PM DermPath Lab Pathologist: Luisa Brown MD Specimen: Skin, left malar cheek 4 2:15 PM GLOVE OPERATOR DERMATOPATHOLOGY LABORATORY Final Diagnosis Specimen A. SKIN, left malar cheek: SEBORRHEIC KERATOSIS, INFLAMED (L82.0) 4 2:15 PM [facility] at [address]15 GLOVE OPERATOR Clinical History BCC 4 2:15 PM [facility] Gross Description Specimen A: Received is one formalin filled container labeled with the patient's name and designated left malar cheek. The specimen consists of a shave biopsy measuring 4x4x1 mm. Jar 0. 2:15 PM [facility] Microscopic Description Specimen A. SKIN, left malar cheek: There is hyperkeratosis, parakeratosis, papillomatosis, and acanthosis of the epidermis. There is a lymphohistiocytic infiltrate within the papillary dermis that is focally lichenoid. 4 2:15 PM [facility] Disclaimer An external and internal positive and negative controls are appropriate for the histochemical, immunohistochemical and immunofluorescence stain(s) in this case (if any), except where stated explicitly. The performance characteristics of the stain(s) cited in this report were developed and its performance characteristic determined by the Dermatopathology Laboratory at [facility], directed by Dr. Hossein Arenas. These tests need not be, and therefore are not, approved by the [place] Food and Drug Administration. The tests are used for clinical purposes. Billing Codes Specimen Charges Stain Charges 41671 1 4 2:15 PM [facility] Embedded Images 2:15 PM [facility] Pathology/Cytolo gy TISSUE SPECIMEN FROM SKIN / Unknown 07/14/2024 3:33 AM GLOVE OPERATOR 07/15/2024 1:36 PM GLOVE OPERATOR us Daniel Somers MD LAB - PATHOLOGY/CYTOLOGY FLACO ABREU Final Result DERMATOPATHOLOGY LABORATORY [facility] - Department of Dermatology [address], [address] [phone] documented in this encounter Visit Diagnoses Diagnosis Neoplasm of uncertain behavior of skin documented in this encounter
== END 2025-05-19 09:23 | disposition home or self-care (01) ==
LOC: ANHFOHIMG 09:23
PROVIDERS: PCP Internal Medicine; Visit Provider Internal Medicine
DX: Z12.31 Encounter for screening mammogram for malignant neoplasm of breast (principal)
CPT/HCPCS: 77063; 77067